=== PATIENT | female | born 1995 | race African-American/Black ===

== ENCOUNTER 2018-05-30 11:33 | Inpatient (IN) ==
[2018-05-30] MEDS ORDERED: OXYTOCIN 30 UNITS/500 ML BAG IV PRN (12:28)
[2018-05-30] MEDS ORDERED: LACTATED RINGER'S 1,000 ML IV PRN (12:28)
[2018-05-30] MEDS ORDERED: miSOPROStol 50 MCG TAB PO ONE (12:45)
[2018-05-30 12:50] LABS: Hematocrit (blood only) 37.8 % (37-47); Hemoglobin 12.6 g/dL (12.0-16.0); Mean Corpuscular Volume 93.8 fL (80-100); Platelet Count 176 K/uL (130-400); RDW Coefficient of Variation 14.7 % (11.5-14.5); RDW Standard Deviation 49.8 fL (36.4-46.3); Red Blood Count 4.03 M/uL (4.2-5.4); White Blood Count 9.84 K/uL (4.8-10.8)
[2018-05-30 13:18] LABS: Mean Corpuscular Hgb Conc 33.3 g/dL (32-36)
--- NOTE | 2018-05-30 13:18 | Progress Note ---
Date of Service May 30, 2018 Met pt and reviewed PNC H&P done Induction for Oligo. AFI3.5 (today) FHr CAT1 ctx minimal VE cl/thick/post Physical Exam Vital Signs (Past 24 Hours): Last Vital Signs Temp 37.2 C 05/30/18 12:25 Resp 18 05/30/18 12:25
--- NOTE | 2018-05-30 13:40 | History and Physical Report ---
DATE OF ADMISSION: 05/30/2018 HISTORY OF PRESENT ILLNESS: The patient is a 23-year-old G1, P0, due date is 05/29/2018 making her 40 weeks and 1 day. The patient was seen in the office 24 hours ago with amniotic fluid index of 3.5 today. She is therefore here for induction of labor. COURSE: Has been unremarkable. LABS: Blood type O positive, antibody negative, rubella immune, GBS positive. PAST MEDICAL HISTORY: None. PAST SURGICAL HISTORY: Dental procedure. SOCIAL HISTORY: The patient denies tobacco, drug or alcohol use. FAMILY HISTORY: Noncontributory. PHYSICAL EXAMINATION: GENERAL: Well-developed, well-nourished black female in no acute distress. HEART: S1, S2, regular rhythm and rate. LUNGS: Clear to auscultation bilaterally. ABDOMEN: Gravid. The patient had a bedside ultrasound today that shows cephalic presentation with ORIN of 3.5. PELVIC: Cervix is closed, thick, medium and posterior. No lesions on the vulva or perineum. EXTREMITIES: No cyanosis, clubbing or edema. ASSESSMENT AND PLAN: A 23-year-old G1, P0 at 40 weeks and 1, oligohydramnios, ORIN is 3.5. The patient is here for labor induction. Positive GBS. Will start the patient on antibiotics prophylactically.
[2018-05-30] MEDS ORDERED: miSOPROStol 50 MCG TAB PO SCH (17:00)
[2018-05-30] MEDS: LACTATED RINGER'S 1,000 ML IV SCH (19:19)
[2018-05-30] MEDS ORDERED: DINOPROSTONE 10 MG INSERT PV ONE (21:30)
--- NOTE | 2018-05-30 22:33 | Progress Note ---
Date of Service May 30, 2018 Doing well Induction for oligo Received 2 doses of Cytotec FHR; CAT1 Ctx 2-3mins VE; Ft/post Cervidil #1 placed Physical Exam Vital Signs (Past 24 Hours): Last Vital Signs Temp 37.0 C 05/30/18 20:00 Pulse 112 H 05/30/18 19:23 Resp 18 05/30/18 15:05 BP 109/63 05/30/18 19:23
--- NOTE | 2018-05-31 00:49 | Progress Note ---
Date of Service May 31, 2018 Chart reviewed with Nurse late and variable decels seen Moderate variability , No recurrent late decels. or recurrent variables IVF hydration Will continue to monitor strip Physical Exam Vital Signs (Past 24 Hours): Last Vital Signs Temp 37.0 C 05/30/18 20:00 Pulse 91 H 05/30/18 23:16 Resp 18 05/30/18 15:05 BP 124/70 05/30/18 23:16
[2018-05-31] MEDS: LACTATED RINGER'S 1,000 ML IV SCH ×3 (01:14→16:31)
--- NOTE | 2018-05-31 01:56 | Progress Note ---
Date of Service May 31, 2018 FHR CAT1 Ctx; tachysystole Cervidil removed IVF bolus Will continue to monitor ctx frequency Physical Exam Vital Signs (Past 24 Hours): Last Vital Signs Temp 37.0 C 05/30/18 20:00 Pulse 91 H 05/30/18 23:16 Resp 18 05/30/18 15:05 BP 124/70 05/30/18 23:16
[2018-05-31] MEDS ORDERED: PENICILLIN G POTASSIUM 6 MU in DEXTROSE 5% 250 ML IV ONE (08:00)
[2018-05-31] MEDS: PENICILLIN G POTASSIUM 3 MU in DEXTROSE 5% 100 ML IV PRN ×2 (18:03→22:08)
--- NOTE | 2018-05-31 22:46 | Obstetrical Progress Note ---
Date of Service May 31, 2018 Physical Exam Vital Signs (Past 24 Hours): Last Vital Signs Temp 36.7 C 05/31/18 22:08 Pulse 93 H 05/31/18 22:34 Resp 18 05/31/18 22:08 BP 115/62 05/31/18 22:34 Genitourinary: Manual OB Exam: + cervical dilation 2 cm, + cervical effacement 50% and + station high OB Exam Monitor Tracing: + external FHT monitor used, + category I and + normal FHT variability
[2018-06-01] MEDS: PENICILLIN G POTASSIUM 3 MU in DEXTROSE 5% 100 ML IV PRN ×5 (03:22→20:10)
[2018-06-01] MEDS ORDERED: OXYTOCIN 30 UNITS/500 ML BAG IV PRN (10:23)
[2018-06-01] MEDS ORDERED: LACTATED RINGER'S 1,000 ML IV PRN ×2 (10:23→17:12)
--- NOTE | 2018-06-01 10:25 | Obstetrical Progress Note ---
Date of Service June 01, 2018 Physical Exam Vital Signs (Past 24 Hours): Last Vital Signs Temp 36.4 C L 06/01/18 10:14 Pulse 101 H 06/01/18 10:16 Resp 18 06/01/18 10:14 BP 106/58 L 06/01/18 10:16 Genitourinary: OB Exam Abdomen: + vertex and + irregular contractions Manual OB Exam: + cervical dilation 3 cm, + cervical effacement 70% and + station high OB Exam Monitor Tracing: + external FHT monitor used and + category I will start oxytocin to augment contractions
[2018-06-01] MEDS: LACTATED RINGER'S 1,000 ML IV SCH ×2 (15:07→15:08)
[2018-06-01] MEDS ORDERED: ePHEDrine sulfate 50 MG/ML AMP ONE (16:15)
[2018-06-01] MEDS ORDERED: BUPIVACAINE 0.25% 30 ML VIAL ONE (16:15)
[2018-06-01] MEDS ORDERED: fentaNYL 2MCG/ML ROPIV 1.25MG/ML 100 ML BAG EPI ONE (16:16)
[2018-06-01] MEDS ORDERED: fentaNYL citrate 100 MCG/2 ML VIAL ONE (16:16)
--- NOTE | 2018-06-01 16:25 | Obstetrical Progress Note ---
Date of Service June 01, 2018 Subjective patient requesting epidural Physical Exam Vital Signs (Past 24 Hours): Last Vital Signs Temp 36.7 C 06/01/18 13:22 Pulse 94 H 06/01/18 14:56 Resp 20 06/01/18 15:25 BP 113/72 06/01/18 14:56 Genitourinary: Manual OB Exam: + cervical dilation 4 cm, + cervical effacement 90% and + station high OB Exam Monitor Tracing: + external FHT monitor used, + external uterine monitor used, + category I and + normal FHT variability awaiting epidural
--- NOTE | 2018-06-01 16:37 | Anesthesiology Consultation ---
Date of Service June 01, 2018 Assessment & Plan Chart Review Chart Review: Acceptable Risk for Labor Epidural Consults Requested none ASA ASA2 Proposed Anesthesia Anesthesia Type: Labor Epidural Risk / Benefits Reviewed With: PT / POA / Parent / Guardian, Accepts Plan and Informed Consent Obtained NPO Date Last Intake of Fluids: 06/01/18 Time Last Intake of Fluids: 08:00 Date Last Intake of Solids: 06/01/18 Time Last Intake of Solids: 08:00 History Height/Weight Height: 5 ft 3 in Weight: 67.585 kg Allergies Allergy/AdvReac Type Severity Reaction Status Date / Time No Known Allergies Allergy Unverified 10/10/15 11:15 Medications Home Medications Medication Instructions Recorded Confirmed Last Taken vit-iron fum-folic ac 1 tab PO DAILY 05/29/18 05/30/18 05/29/18 18:00 [ Vitamin] valacyclovir [Valtrex] 500 mg PO DAILY 05/29/18 05/30/18 05/29/18 18:00 Active Medications Generic Name Dose Route Start Last Admin Trade Name Jennifer PRN Reason Stop Dose Admin Lactated Ringer's 1,000 mls @ 999 mls/hr 05/30/18 12:28 06/01/18 16:10 Lr IV 06/29/18 12:27 999 mls/hr .Q1H1M PRN Administration (Pre-Anesthesia) Penicillin G Potassium 3 mu/ 106 mls @ 100 mls/hr 05/31/18 13:00 06/01/18 16:04 Dextrose IV 06/10/18 12:59 106 mls/hr Q4H PRN Administration Give until delivery Oxytocin 30 units in 500 mls @ 9 mls/hr 06/01/18 10:23 06/01/18 16:05 Pitocin IV 06/03/18 10:22 0.54 units/hr .Q24H PRN 9 mls/hr Labor Induction/Augmentation Titration Protocol 0.54 UNITS/HR Past Medical History Medical History History of suicidal ideation History of tooth extraction Past Anesthesia History No Hx of Anesthesia Complications and No Family Hx of Anesthesia Complications History of PONV No Motion Sickness Screening History of Motion Sickness: No Social History Smoking Status: Never smoker Do You Dip or Chew Tobacco: No Hx Alcohol Use: No Hx Substance Use: No substance use type: does not use Exercise / Class Metabolic Activity II 4-5 Yardwork/Stairs/Walk up deepwater Physical Exam Vital Signs Last Vital Signs Temp 36.7 C 06/01/18 13:22 Pulse 106 H 06/01/18 16:40 Resp 20 06/01/18 15:25 BP 118/78 06/01/18 16:27 Pulse Ox 100 06/01/18 16:40 ENMT Mouth: + small oral opening; no dentition abnormality Thyromental Distance: < 3.5 Finger Breadths Mallampati Class: II Neck normal visual inspection and trachea midline; neck extension not limited Respiratory normal respiratory effort Auscultation: lungs clear to auscultation bilaterally Cardiovascular Rate/Rhythm: regular rate and regular rhythm Heart Sounds: no murmur Musculoskeletal Spine: lumbar spine normal to inspection; normal cervical ROM Neurologic moves all extremities Motor/Sensory: no sensory deficit Psychiatric Orientation: alert and oriented x 3 Testing Laboratory Results 05/30/18 12:36
[2018-06-01] MEDS ORDERED: ONDANSETRON INJ 2 MG/ML 2 ML VIAL IV PRN (17:12)
[2018-06-01] MEDS ORDERED: NALBUPHINE HCL INJ 10 MG/ML AMP IV PRN (17:12)
[2018-06-01] MEDS ORDERED: NALOXONE HCL 1 MG in SODIUM CHLORIDE 0.9% 1000ML 1,000 ML IV PRN (17:12)
[2018-06-01] MEDS ORDERED: DiphenhydrAMINE HCL 50 MG/ML VIAL IV PRN (17:12)
[2018-06-01] MEDS ORDERED: PROMETHAZINE HCL 25 MG in SODIUM CHLORIDE 0.9% 50 ML IV PRN (17:12)
[2018-06-01] MEDS ORDERED: ePHEDrine sulfate 50 MG/ML AMP IV PRN (17:12)
[2018-06-01] MEDS ORDERED: NALOXONE HCL 0.4 MG/1 ML VIAL/CARP IV PRN (17:12)
--- NOTE | 2018-06-01 19:50 | Obstetrical Progress Note ---
Date of Service June 01, 2018 Physical Exam Vital Signs (Past 24 Hours): Last Vital Signs Temp 37.1 C 06/01/18 19:15 Pulse 102 H 06/01/18 19:45 Resp 18 06/01/18 19:15 BP 145/74 H 06/01/18 19:38 Pulse Ox 100 06/01/18 19:45 Genitourinary: Manual OB Exam: + cervical dilation 4 cm and 5 cm, + cervical effacement 80%, + station high and + amniotic fluid OB Exam Monitor Tracing: + external FHT monitor used, + external uterine monitor used, + category I and + normal FHT variability Attempted AROM but very minimal fluid noted
[2018-06-02] MEDS: PENICILLIN G POTASSIUM 3 MU in DEXTROSE 5% 100 ML IV PRN ×3 (00:02→08:04)
[2018-06-02] MEDS: fentaNYL 2MCG/ML ROPIV 1.25MG/ML 100 ML BAG EPI PRN ×2 (02:16→09:11)
--- NOTE | 2018-06-02 07:34 | Progress Note ---
Date of Service June 02, 2018 Pt signed out to me by Dr Dykes Met pt an mother Reviewed care with Nurse Pt on IV anbtibx for GBS No fever ot tachycardia reported Both Nurse and Dr Dykes report strip has been unremarkable FHR ; CAt1 Ctx 1-4 VE; 10/100/0 station Pit 19MU Pt not feeling any pelvic pressure Will start pushing as soon Anticipate VD Physical Exam Vital Signs (Past 24 Hours): Last Vital Signs Temp 36.8 C 06/02/18 06:24 Pulse 96 H 06/02/18 07:28 Resp 16 06/02/18 06:24 BP 122/72 06/02/18 07:22 Pulse Ox 93 06/02/18 07:28
[2018-06-02] MEDS ORDERED: HYDROCORTISONE ACETATE 25 MG SUPP PR PRN (12:14)
[2018-06-02] MEDS ORDERED: SUPERCREAM 0.870% 15 GM JAR EXT PRN (12:14)
[2018-06-02] MEDS ORDERED: OXYTOCIN 30 UNITS/500 ML BAG IV PRN (12:14)
[2018-06-02] MEDS ORDERED: DIPHTHERIA/TETANUS/PERTUSSIS 0.5 ML SYR/VIAL IM ONE (12:14)
[2018-06-02] MEDS ORDERED: BENZOCAINE 20% AER SPR 82.5 GM CAN EXT PRN (12:14)
[2018-06-02] MEDS ORDERED: ACETAMINOPHEN 325 MG TAB PO PRN (12:14)
[2018-06-02] MEDS: METHYLERGONOVINE MALEATE 0.2 MG/ML AMP ONE ×2 (12:14→12:51)
[2018-06-02] MEDS ORDERED: BISACODYL 10 MG SUPP PR PRN (12:14)
[2018-06-02] MEDS: miSOPROStol 200 MCG TAB ONE ×2 (12:29→12:51)
[2018-06-02] MEDS ORDERED: miSOPROStol 200 MCG TAB PR ONE (12:37)
[2018-06-02] MEDS ORDERED: METHYLERGONOVINE MALEATE 0.2 MG/ML AMP IM STA (12:37)
[2018-06-02 12:54] LABS: Base Excess Cord Arterial Bld -11.1 mEq/L (-9-1.8); CO2 Cord Arterial Blood 74 mmHg (39.1-73.5); HCO3 Cord Arterial Blood 21 mmol/L (19.7-28.5); pH Cord Arterial Blood 7.06 (7.1-7.38)
[2018-06-02 13:02] LABS: Base Excess Cord Venous Blood -8.7 mEq/L (-7.7-1.9); Cord Venous Blood HCO3 18 mmol/L (18.4-26.8); Cord Venous Blood PCO2 41 mmHg (30.4-57.2); Cord Venous Blood PO2 34 mmHg (14.1-43.3); Cord Venous Blood pH 7.26 (7.20-7.44)
--- NOTE | 2018-06-02 14:19 | Anesthesia Procedure Note ---
Date of Service June 02, 2018 Anesthesia Post Epidural Note Vital Signs Vital Signs: Temp Pulse Resp BP Pulse Ox 36.9 C 118 H 20 139/66 54 L 06/02/18 13:02 06/02/18 14:17 06/02/18 14:02 06/02/18 14:17 06/02/18 12:52 Pain Intensity Back: Pain Intensity: 0 Notes Mental Status: alert / awake / arousable and participated in evaluation Nausea / Vomiting: adequately controlled Pain: adequately controlled Airway Patency, RR, SpO2: stable & adequate BP & HR: stable & adequate Hydration State: stable & adequate Neuraxial Anesthesia: was administered and sensory block is resolving Anesthetic Complications: no major complications apparent and Pt Satisfied with anesthetic care Epidural: Removed without complications and With tip intact
[2018-06-02] MEDS: IBUPROFEN 600 MG TAB PO PRN (15:31)
--- NOTE | 2018-06-02 15:37 | Delivery Summary ---
DATE OF OPERATION: 06/02/2018 DELIVERY NOTE The patient delivered a live male in occiput anterior presentation. There was a nuchal cord which was easily reduced. was delivered, placed on mother's abdomen. Cord was clamped and cut. Cord gas was obtained as well as cord blood. Placenta was spontaneously delivered. Inspection of the placenta shows a grossly normal 3-vessel cord. The patient's weight and Apgars is in the pediatric record. Inspection of the perineum showed a second-degree midline laceration as well as 2 labial tears, which I repaired with 2-0 Vicryl in layers. Rectal exam post repair showed good sphincter tone. Estimated blood loss was 600 mL. Baby and mother are doing well in recovery. All instruments were removed from the vagina and accounted for including retractors, sponges and needles. I attest to the content of the Intraoperative Record and any orders documented therein. Any exception s are noted below.
[2018-06-02] MEDS ORDERED: OXYTOCIN 20 UNITS in LACTATED RINGER'S 1,000 ML IV SCH (20:45)
[2018-06-02] MEDS: DOCUSATE SODIUM 100 MG CAP PO SCH (20:53)
[2018-06-03 07:14] LABS: Hematocrit (blood only) 31.8 % (37-47); Hemoglobin 10.5 g/dL (12.0-16.0); Mean Platelet Volume 10.7 fL (7.4-10.4); Platelet Count 181 K/uL (130-400); RDW Coefficient of Variation 14.5 % (11.5-14.5); RDW Standard Deviation 49.6 fL (36.4-46.3); Red Blood Count 3.42 M/uL (4.2-5.4); White Blood Count 14.66 K/uL (4.8-10.8)
[2018-06-03] MEDS ORDERED: PRENATAL VITAMIN 1 TAB PO SCH (09:00)
[2018-06-03] MEDS: PRENATAL VITAMIN 1 TAB PO SCH (09:14)
[2018-06-03] MEDS: FERROUS SULFATE 325 MG TAB PO SCH (09:15)
[2018-06-03] MEDS: DOCUSATE SODIUM 100 MG CAP PO SCH ×2 (09:15→21:18)
[2018-06-03] MEDS: IBUPROFEN 600 MG TAB PO PRN ×3 (09:16→21:22)
--- NOTE | 2018-06-03 10:21 | Obstetrical Progress Note ---
Date of Service June 03, 2018 Assessment & Plan (1) normal course: PPD #1 Pt doing well No complaints Anticipate disch tomorrow Subjective Ambulation: ambulating normally Voiding: no voiding problems Passing Gas:: Yes Diet Tolerance:: regular diet Lochia:: Small Feeding Type:: breast feeding Review of Systems All systems reviewed & are unremarkable except as noted in HPI & below Physical Exam Vital Signs (Past 24 Hours) Last Vital Signs Temp 36.3 C L 06/03/18 08:05 Pulse 100 H 06/03/18 08:05 Resp 18 06/03/18 08:05 BP 106/68 06/03/18 08:05 Pulse Ox 100 06/03/18 08:05 Constitutional WD/WN, vitals as above well developed and well nourished Eyes PERRL, conjunctivae normal, anicteric sclerae Neck trachea midline, no thyromegaly Respiratory normal respiratory effort, lungs clear to auscultation Auscultation: no crackles, no rales and no wheezes Cardiovascular RRR, no murmur, no edema Gastrointestinal (Abdomen) normal bowel sounds, soft, nontender, no hepatosplenomegaly Uterus is below umbilicus Musculoskeletal no cyanosis or clubbing, extremities motor strength 5/5 Skin no rashes, warm and dry Neurologic patellar DTR's 2+ bilat, sensation intact Psychiatric A+Ox3, euthymic affect Genitourinary normal external appearance
[2018-06-03] MEDS ORDERED: BISACODYL 5 MG TABEC PO SCH (20:00)
[2018-06-04] MEDS: IBUPROFEN 600 MG TAB PO PRN (06:12)
[2018-06-04 07:28] LABS: Hematocrit (blood only) 29.8 % (37-47)
[2018-06-04] MEDS: PRENATAL VITAMIN 1 TAB PO SCH (08:06)
[2018-06-04] MEDS: DOCUSATE SODIUM 100 MG CAP PO SCH (08:06)
[2018-06-04] MEDS: FERROUS SULFATE 325 MG TAB PO SCH (08:07)
--- NOTE | 2018-06-04 10:20 | Obstetrical Progress Note ---
Date of Service June 04, 2018 Assessment & Plan (1) normal course: Pt doing well s/p VD day #2 pt doing well d/c home with instructions Subjective Ambulation: ambulating normally Voiding: no voiding problems Passing Gas:: Yes Diet Tolerance:: regular diet Lochia:: Small Feeding Type:: breast feeding Review of Systems All systems reviewed & are unremarkable except as noted in HPI & below Physical Exam Vital Signs (Past 24 Hours) Last Vital Signs Temp 36.6 C 06/04/18 08:00 Pulse 89 06/04/18 08:00 Resp 18 06/04/18 08:00 BP 103/65 06/04/18 08:00 Pulse Ox 95 06/04/18 08:00 Constitutional WD/WN, vitals as above well developed and well nourished Eyes PERRL, conjunctivae normal, anicteric sclerae Neck trachea midline, no thyromegaly Respiratory normal respiratory effort, lungs clear to auscultation Auscultation: no crackles, no rales and no wheezes Cardiovascular RRR, no murmur, no edema Gastrointestinal (Abdomen) normal bowel sounds, soft, nontender, no hepatosplenomegaly Uterus is below umbilicus Musculoskeletal no cyanosis or clubbing, extremities motor strength 5/5 Skin no rashes, warm and dry Neurologic patellar DTR's 2+ bilat, sensation intact Psychiatric A+Ox3, euthymic affect Genitourinary normal external appearance
== END 2018-06-04 16:00 | disposition home or self-care (01) | DRG 807 ==
LOC: OPB 11:33 → 4S2 11:34 → 4S1 05-31 02:03 → 4S2 06-02 15:31

== ENCOUNTER 2019-09-02 17:38 | Inpatient (IN) ==
--- NOTE | 2019-09-02 18:38 | Emergency Department Note ---
Impression & Plan Acute psychosis, Depressed mood ED Provider Note NAME: RIMMA POTTER AGE: 24 SEX: F : 1995 ARRIVES VIA: Walk-In INFORMANT: Patient, ED PROVIDER(S): Vishnu Dickerson MD Chief Complaint: Acute psychosis HPI: History is limited secondary to the patient's acute psychosis and limited ability to relate her concerns. After speaking with the patient who was occasionally emotionally upset and sad I did speak with the patient's family. The patient's had decreased sleep is not taking care of herself. The patient recently took herself off of her olanzapine back in March. The patient has not had any additional follow-up since then. The patient stopped taking medication as she does have a [id number] and it was causing her demeanor to change to where she felt as though she was unable to take care of her child. Patient has tried to cut herself 2 to 3 years prior. Patient is not making any acute sense and the family was concerned. Patient did have a 302 petition completed by the family members. ROS: See HPI for pertinent positives and negatives. A total of 10 systems were reviewed and otherwise negative. Past medical history: See below Surgical history: See below Social history: See below Physical Exam: GENERAL: NAD, non-toxic. EYE EXAM: Normal conjunctiva. PERRL, no anisocoria and EOM's grossly intact w/o pain. [OROPHARYNX: Moist mucus membranes. Grossly normal dentition. ] NECK: Supple, no nuchal rigidity, no adenopathy, non-tender. No signs of meningismus. LUNGS: Clear to auscultation. Normal chest wall mechanics. HEART: NSR, no MRG. ABDOMEN: Abdomen soft, non-tender, normo-active bowel sounds, no masses, no rebound or guarding. BACK: No CVA TTP. SKIN: No rashes and no bruising. UPPER EXTREMITIES: Upper extremities are grossly normal. LOWER EXTREMITIES: Grossly normal, no edema. NEURO EXAM: Awake and alert moves all extremities. Psych: Tangential speech, depressed mood, does not respond specifically to questions of SI, HI, or AVH. Differential diagnoses: Mood disorder, infection, hypoglycemia, electrolyte abnormalities, cardiac sources, intracerebral event, toxicologic, trauma, neurologic, as well as other pathologies. Course: Patient was seen and evaluated the bedside. Full history physical exam was performed. EKG: None Imaging Studies: None MDM: She was seen and evaluated bedside. The patient subsequently medically cleared. I did speak with the patient's family. Patient is an involuntary 302. I did sign out the patient pending evaluation disposition and placement to Dr. Zelaya the nighttime physician. Past Med/Surg History Medical History Bipolar 1 disorder History of suicidal ideation Surgical History History of tooth extraction Family History Other Heart disease Social History Preferred Language: Wolof Communication Ability: Effective [employer] Service Management Teacher Required: No Beliefs That Will Affect Care: None marital status: Single Current Living Situation: Parent Current Living Situation Comment: Lives 50/50 with friend Tr and mother Williams Feels Safe at Home: Declines to Answer Smoking Status: Never smoker Hx Alcohol Use: No Hx Substance Use: No Allergies Allergies Allergy/AdvReac Type Severity Reaction Status Date / Time No Known Allergies Allergy Verified 09/02/19 18:27 Home Meds Home Medications Medication Instructions Recorded Confirmed olanzapine 5 mg PO HS 09/03/19 09/03/19 Results & Data (ED) Vital Signs Vital Signs - 24 hr 09/02/19 17:40 Temperature 37.3 C Temperature Source Oral Pulse Rate 128 H Respiratory Rate 20 Blood Pressure 145/84 H Blood Pressure Mean 104 Pulse Oximetry 98 Oxygen Delivery Method Room Air Sepsis Recent Fever Within 48 Hours No Sepsis New/Unexplained Change in Mental Status No Sepsis Action Taken by Nursing No Action Required Home Medications Current Medication List: was personally reviewed by me Laboratory Data Attestation: I reviewed the patient's lab results. Result diagrams: 09/02/19 20:35 09/02/19 20:35 Lab Results 09/02/19 09/02/19 09/02/19 Range/Units 20:35 20:35 20:35 WBC 6.88 (4.8-10.8) K/uL RBC 4.09 L (4.2-5.4) M/uL Hgb 12.5 (12.0-16.0) g/dL Hct 38.0 (37-47) % MCV 92.9 (80-100) fL MCH 30.6 (25-34) pg MCHC 32.9 (32-36) g/dL RDW Std Deviation 44.9 (36.4-46.3) fL RDW Coeff of Ana 13.3 (11.5-14.5) % Plt Count 368 (130-400) K/uL MPV 9.1 (7.4-10.4) fL Immature Gran % (Auto) 0.1 % Neut % (Auto) 62.9 % Lymph % (Auto) 32.6 % Bonner % (Auto) 4.2 % Eos % (Auto) 0.1 % Baso % (Auto) 0.1 % Immature Gran # (Auto) 0.01 (0.00-0.02) K/uL Neut # (Auto) 4.32 (1.4-6.5) K/uL Lymph # (Auto) 2.24 (1.2-3.4) K/uL Bonner # (Auto) 0.29 (0.11-0.59) K/uL Eos # (Auto) 0.01 (0-0.5) K/uL Baso # (Auto) 0.01 (0-0.2) K/uL Sodium 136 (136-145) mmol/L Potassium 3.9 (3.5-5.1) mmol/L Chloride 104 (98-107) mmol/L Carbon Dioxide 26 (21-32) mmol/L Anion Gap 5.0 (3-11) BUN 10 (7-18) mg/dl Creatinine 0.86 (0.6-1.2) mg/dl Est Cr Clr Drug Dosing 82.0 ml/min Est GFR ( Amer) 111.1 Est GFR (Non-Af Amer) 95.9 BUN/Creatinine Ratio 11.6 (10-20) Glucose 99 (70-99) mg/dl Calcium 9.3 (8.5-10.1) mg/dl Total Bilirubin 0.4 (0.2-1) mg/dl AST 11 L (15-37) U/L ALT 18 (12-78) U/L Alkaline Phosphatase 58 (45-117) U/L Total Protein 8.1 (6.4-8.2) gm/dl Albumin 4.0 (3.4-5.0) gm/dl Globulin 4.1 H (2.5-4.0) gm/dl Albumin/Globulin Ratio 1.0 (0.9-2) TSH 0.796 (0.300-4.500) uIu/ml HCG, Qual (Negative) Urine Color Urine Appearance (Clear) Urine pH (4.5-7.5) Ur Specific [place] (1.000-1.030) Urine Protein (Negative) Urine Glucose (UA) (Negative) Urine Ketones (Negative) Urine Blood (Negative) Urine Nitrite (Negative) Urine Bilirubin (Negative) Urine Urobilinogen (Negative) Ur Leukocyte Esterase (Negative) Salicylates < 1.7 L (2.8-20) mg/dl Urine Opiates Screen (Neg) Ur Methadone, Qual (Neg) Acetaminophen < 2 L (10-30) ug/ml Urine Barbiturates (Neg) Ur Phencyclidine (PCP) (Neg) U Amphetamin/Meth Scrn (Neg) MDMA (Ecstasy) Screen (Neg) U Benzodiazepines Scrn (Neg) Ur Cocaine Metabolite (Neg) U Marijuana (THC) Screen (Neg) Ethyl Alcohol mg/dL (0-3) mg/dl 09/02/19 09/02/19 09/03/19 Range/Units 20:35 20:38 03:51 WBC (4.8-10.8) K/uL RBC (4.2-5.4) M/uL Hgb (12.0-16.0) g/dL Hct (37-47) % MCV (80-100) fL MCH (25-34) pg MCHC (32-36) g/dL RDW Std Deviation (36.4-46.3) fL RDW Coeff of Ana (11.5-14.5) % Plt Count (130-400) K/uL MPV (7.4-10.4) fL Immature Gran % (Auto) % Neut % (Auto) % Lymph % (Auto) % Bonner % (Auto) % Eos % (Auto) % Baso % (Auto) % Immature Gran # (Auto) (0.00-0.02) K/uL Neut # (Auto) (1.4-6.5) K/uL Lymph # (Auto) (1.2-3.4) K/uL Bonner # (Auto) (0.11-0.59) K/uL Eos # (Auto) (0-0.5) K/uL Baso # (Auto) (0-0.2) K/uL Sodium (136-145) mmol/L Potassium (3.5-5.1) mmol/L Chloride (98-107) mmol/L Carbon Dioxide (21-32) mmol/L Anion Gap (3-11) BUN (7-18) mg/dl Creatinine (0.6-1.2) mg/dl Est Cr Clr Drug Dosing ml/min Est GFR ( Amer) Est GFR (Non-Af Amer) BUN/Creatinine Ratio (10-20) Glucose (70-99) mg/dl Calcium (8.5-10.1) mg/dl Total Bilirubin (0.2-1) mg/dl AST (15-37) U/L ALT (12-78) U/L Alkaline Phosphatase (45-117) U/L Total Protein (6.4-8.2) gm/dl Albumin (3.4-5.0) gm/dl Globulin (2.5-4.0) gm/dl Albumin/Globulin Ratio (0.9-2) TSH (0.300-4.500) uIu/ml HCG, Qual Negative (Negative) Urine Color Yellow Urine Appearance Clear (Clear) Urine pH 5.5 (4.5-7.5) Ur Specific [place] 1.024 (1.000-1.030) Urine Protein Negative (Negative) Urine Glucose (UA) Negative (Negative) Urine Ketones Negative (Negative) Urine Blood Negative (Negative) Urine Nitrite Negative (Negative) Urine Bilirubin Negative (Negative) Urine Urobilinogen Negative (Negative) Ur Leukocyte Esterase Negative (Negative) Salicylates (2.8-20) mg/dl Urine Opiates Screen (Neg) Ur Methadone, Qual (Neg) Acetaminophen (10-30) ug/ml Urine Barbiturates (Neg) Ur Phencyclidine (PCP) (Neg) U Amphetamin/Meth Scrn (Neg) MDMA (Ecstasy) Screen (Neg) U Benzodiazepines Scrn (Neg) Ur Cocaine Metabolite (Neg) U Marijuana (THC) Screen (Neg) Ethyl Alcohol mg/dL < 3.0 (0-3) mg/dl 06/11/20 Range/Units 03:57 WBC (4.8-10.8) K/uL RBC (4.2-5.4) M/uL Hgb (12.0-16.0) g/dL Hct (37-47) % MCV (80-100) fL MCH (25-34) pg MCHC (32-36) g/dL RDW Std Deviation (36.4-46.3) fL RDW Coeff of Ana (11.5-14.5) % Plt Count (130-400) K/uL MPV (7.4-10.4) fL Immature Gran % (Auto) % Neut % (Auto) % Lymph % (Auto) % Bonner % (Auto) % Eos % (Auto) % Baso % (Auto) % Immature Gran # (Auto) (0.00-0.02) K/uL Neut # (Auto) (1.4-6.5) K/uL Lymph # (Auto) (1.2-3.4) K/uL Bonner # (Auto) (0.11-0.59) K/uL Eos # (Auto) (0-0.5) K/uL Baso # (Auto) (0-0.2) K/uL Sodium (136-145) mmol/L Potassium (3.5-5.1) mmol/L Chloride (98-107) mmol/L Carbon Dioxide (21-32) mmol/L Anion Gap (3-11) BUN (7-18) mg/dl Creatinine (0.6-1.2) mg/dl Est Cr Clr Drug Dosing ml/min Est GFR ( Amer) Est GFR (Non-Af Amer) BUN/Creatinine Ratio (10-20) Glucose (70-99) mg/dl Calcium (8.5-10.1) mg/dl Total Bilirubin (0.2-1) mg/dl AST (15-37) U/L ALT (12-78) U/L Alkaline Phosphatase (45-117) U/L Total Protein (6.4-8.2) gm/dl Albumin (3.4-5.0) gm/dl Globulin (2.5-4.0) gm/dl Albumin/Globulin Ratio (0.9-2) TSH (0.300-4.500) uIu/ml HCG, Qual (Negative) Urine Color Urine Appearance (Clear) Urine pH (4.5-7.5) Ur Specific [place] (1.000-1.030) Urine Protein (Negative) Urine Glucose (UA) (Negative) Urine Ketones (Negative) Urine Blood (Negative) Urine Nitrite (Negative) Urine Bilirubin (Negative) Urine Urobilinogen (Negative) Ur Leukocyte Esterase (Negative) Salicylates (2.8-20) mg/dl Urine Opiates Screen Neg (Neg) Ur Methadone, Qual Neg (Neg) Acetaminophen (10-30) ug/ml Urine Barbiturates Neg (Neg) Ur Phencyclidine (PCP) Neg (Neg) U Amphetamin/Meth Scrn Neg (Neg) MDMA (Ecstasy) Screen Neg (Neg) U Benzodiazepines Scrn Neg (Neg) Ur Cocaine Metabolite Neg (Neg) U Marijuana (THC) Screen Pos H (Neg) Ethyl Alcohol mg/dL (0-3) mg/dl Administered Medications Olanzapine (Zyprexa) 5 mg PO HS EMBER Stop: 10/03/19 21:59 Last Admin: 09/03/19 21:34 Dose: 5 mg Documented by: [id number] Discontinued Medications Haloperidol Lactate (Haldol) 5 mg IM NOW STA Stop: 09/02/19 19:42 Last Admin: 09/02/19 20:11 Dose: 5 mg Documented by: [id number] Lorazepam (Ativan) 2 mg IM NOW STA Stop: 09/02/19 19:42 Last Admin: 09/02/19 20:11 Dose: 2 mg Documented by: [id number] Discharge Plan Visit Data *Final* Discharge Date/Time: 09/03/19 10:00 Chief Complaint: Mental Health Evaluation Stated Complaint: MENTAL HEALTH EVAL ED Provider: Isidro Casanova Discharge Problem: Acute psychosis, Depressed mood Patient Disposition: Admitted As Inpatient Discharge Instructions Interventions: ED Discharge Assessment Last Done: 09/03/19 10:00
[2019-09-02] MEDS ORDERED: LORazepam 2 MG/ML VIAL (IM USE) IM STA (19:41)
[2019-09-02] MEDS ORDERED: HALOPERIDOL LACTATE 5 MG/ML 1 ML VIAL IM STA (19:41)
[2019-09-02 21:15] LABS: Basophils # (auto) 0.01 K/uL (0-0.2); Basophils % (auto) 0.1 %; Eosinophils # (auto) 0.01 K/uL (0-0.5); Eosinophils % (auto) 0.1 %; Hemoglobin 12.5 g/dL (12.0-16.0); Immature Granulocytes # (auto) 0.01 K/uL (0.00-0.02); Immature Granulocytes % (auto) 0.1 %; Lymphocytes # (auto) 2.24 K/uL (1.2-3.4); Lymphocytes % (auto) 32.6 %; Mean Corpuscular Hemoglobin 30.6 pg (25-34); Mean Corpuscular Hgb Conc 32.9 g/dL (32-36); Mean Corpuscular Volume 92.9 fL (80-100); Mean Platelet Volume 9.1 fL (7.4-10.4); Monocytes # (auto) 0.29 K/uL (0.11-0.59); Monocytes % (auto) 4.2 %; Neutrophils # (auto) 4.32 K/uL (1.4-6.5); Neutrophils % (auto) 62.9 %; Platelet Count 368 K/uL (130-400); RDW Coefficient of Variation 13.3 % (11.5-14.5); RDW Standard Deviation 44.9 fL (36.4-46.3); Red Blood Count 4.09 M/uL (4.2-5.4); White Blood Count 6.88 K/uL (4.8-10.8)
[2019-09-02 21:26] LABS: Pregnancy Test, Serum Negative (Negative)
[2019-09-02 21:33] LABS: BUN Creatinine Ratio 11.6 (10-20); Calcium 9.3 mg/dl (8.5-10.1); Est GFR (African American) 111.1; Est GFR (Non-African American) 95.9; Potassium 3.9 mmol/L (3.5-5.1)
[2019-09-02 21:43] LABS: Acetaminophen < 2 ug/ml (10-30); Bilirubin,Total 0.4 mg/dl (0.2-1); Globulin 4.1 gm/dl (2.5-4.0); Salicylate < 1.7 mg/dl (2.8-20); Thyroid Stimulating Hormone 0.796 uIu/ml (0.300-4.500); Total Protein 8.1 gm/dl (6.4-8.2)
[2019-09-03 04:09] LABS: Appearance Urine Clear (Clear); Bilirubin Urine Negative (Negative); Blood Urine Negative (Negative); Color Urine Yellow; Glucose Urine UA Negative (Negative); Ketones Urine Negative (Negative); Leukocyte Esterase Urine Negative (Negative); Nitrite Urine Negative (Negative); Protein Urine Negative (Negative); Specific Gravity Urine 1.024 (1.000-1.030); Urobilinogen Urine Negative (Negative); pH Urine 5.5 (4.5-7.5)
[2019-09-03 04:56] LABS: Amphetamines+Metham, Urine Neg (Neg); Barbiturates, Urine Neg (Neg); Benzodiazepine, Urine Neg (Neg); Cocaine, Urine Neg (Neg); MDMA (Ecstacy), Urine Neg (Neg); Methadone, Urine Neg (Neg); Opiate, Urine Neg (Neg); Phencyclidine, Urine Neg (Neg)
--- NOTE | 2019-09-03 06:40 | Emergency Department Note ---
ED Visit Note Patient signed out to me awaiting psychiatric case management evaluation after requiring Ativan and Haldol last night. Patient is reportedly on a 302 petition secondary to suicidal thoughts that she made to family members. Medical clearance otherwise completed previously. Patient did have some transient moderate tachycardia here and repeat EKG shows a sinus rhythm 104 bpm. QTC of 449 is noted without PVC or ST segment changes. No evidence of SVT or significant dysrhythmia. Believe she is cleared for further inpatient psychiatric care. Second transplant case manager assisted with evaluation and bed placement. Was accepted to 3 S. for further care on 302 given the petitioning statement. Patient this morning denies acute suicidal thoughts but does report history. .
--- NOTE | 2019-09-03 07:11 | Emergency Department Note ---
ED Visit Note I received this patient in signout at the change of shift from Dr. Dickerson, pending psychiatric evaluation and disposition. The patient was agitated and required sedation with Haldol and Ativan previous to signout. Upon clearing, the patient will require mental health evaluation. She is currently held on a 302. The case has been signed out to Dr. Casanova at the change of shift, please see his notes for final disposition. .
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
[2019-09-03] MEDS ORDERED: ALUMINUM/MAGNESIUM SUSP 30 ML UDC PO PRN (14:04)
[2019-09-03] MEDS ORDERED: ACETAMINOPHEN 325 MG TAB PO PRN (14:04)
[2019-09-03] MEDS ORDERED: MAGNESIUM HYDROXIDE SUSP 30 ML UDC PO PRN (14:04)
[2019-09-03] MEDS ORDERED: BISMUTH SUBSALICYLATE PER ML OMNICELL CHARGE PO PRN (14:04)
[2019-09-03] MEDS ORDERED: SODIUM CHLORIDE 0.65% NA SOLN 45 ML (OCEAN) PRN (14:04)
[2019-09-03] MEDS ORDERED: OLANZapine 5 MG TABLET PO SCH (22:00)
--- NOTE | 2019-09-03 23:16 | Electrocardiogram Report ---
Test Reason : Blood Pressure : / mmHG Vent. Rate : 104 BPM Atrial Rate : 104 BPM P-R Int : 118 ms QRS Dur : 074 ms QT Int : 342 ms P-R-T Axes : 067 080 054 degrees QTc Int : 449 ms Sinus tachycardia Otherwise normal ECG When compared with ECG of 10-OCT-2015 10:47, QT has lengthened Confirmed by Phil Hunt ([id number] on 09/03/2019 11:15:59 PM Referred By: REFERRED SELF Confirmed By:Phil Hunt
[2019-09-04 08:20] LABS: Glucose Fasting 88 mg/dl (70-99)
[2019-09-04 08:26] LABS: Chol HDL Ratio 2; Cholesterol 155 mg/dl (0-200); HDL Cholesterol 72 mg/dl; LDL Cholesterol Calculated 73 mg/dl; Triglycerides 50 mg/dl (0-150); VLDL Cholesterol 10 mg/dl
--- NOTE | 2019-09-04 14:33 | Psychiatric Progress Note ---
Date of Service September 04, 2019 Impression / Recommendations Impression 24-year-old partnered female with a history of bipolar disorder and multiple previous hospitalizations who dropped out of treatment several months ago and has not been on medication, now presenting with psychosis and inability to care for herself. UDS + THC, and family, who completed the 302 petition, notes she has not been able to care for her child due to her psychiatric symptoms. She is a limited historian and we will need to gather additional information. Inpatient treatment is medically necessary due to the severity of her symptoms and risk for harm to both herself and others of discharge, as she has not been able to provide for her own basic needs or those of her [id number] child. On the second day of her stay the patient disclosed that she recognizes that her thinking has been confused and that she is having trouble distinguishing that which she has read about in books with what is actually happening in the real world around her. She endorses paranoid thoughts regarding her family of orig in. She tells us that prior to admission she had had suspicions that her mother, and her younger brother and sister were trying to kill her, although she reports that those thoughts have resolved. The patient's main concern at this point is that she acknowledges that her thinking has not been clear. She feels that she has had more clarity of thought today than previously, but does not attribute that to olanzapine (given last night) or Haldol, given in the emergency department. She asked that we not continue olanzapine because she feels that it causes her to feel sedated and "more confused." Clinical data provided today by the patient is not strongly supportive of the diagnosis of bipolar disorder, although she does acknowledge that her mood cycles and that there are times in her life where she feels "really happy." (1) Bipolar 1 disorder: 09/02 -admitted on a 302 involuntary commitment. -Medically necessary private room due to disorganized and aggressive behavior in the emergency room. -Use of ANGELICA as needed. -Continue home dose of olanzapine 5 mg at bedtime, and explore other medication options. She reports past trials of other atypicals and lithium states all medications made her feel "like a zombie." Obtain records from past treatment. Will order fasting blood work for tomorrow for monitoring on an atypical. -Encourage group attendance and participation. Work on healthy coping skills and discharge safety plan. -Refer for outpatient mental health treatment. Clarify if she has a BCM. -Family meeting with boyfriend and/or mother. 09/03 -The patient reports today that she feels that her thinking has become somewhat more organized. She was able to disclose that her thoughts prior to admission had included a belief that her mother, her younger brother and her younger sister are conspiring to physically harm or kill her. -Patient, as noted above, believes that all second-generation antipsychotic medications taken by the patient to date have caused excess sedation and, she puts it, causing her to feel "like a zombie." We discussed various treatment options, including a trial of aripiprazolea medication that she has not taken in the past, to the best of her recollection. We also discussed perphenazine. Atypical antipsychotic medications, and given the somewhat unusual presentation for either pole of bipolar disorder, I will offer the patient a trial of perphenazine 2 mg a day, and we will discontinue olanzapine at the patient's request. Risk Factors Assessment Male: No : No Do You Have Access To A Gun?: No Health Problems: No Mental Health Diagnoses: Yes Substance Use Disorders: Yes Previous Attempt: Yes Family History of Suicide: No Previous Psychiatric Hospitalization: Yes Hopelessness: No Smoker: No Protective Factors Assessment : No Responsible for Young Children: Yes Employed: No Supportive Family: Yes Good Rapport with Provider: No Interval History Chief Complaint "I had a mental breakdown". Review of Systems Sleep Information Total Hours of Sleep: 7.25 Meal Information Percent Meal Consumed - Breakfast: 75 Percent Meal Consumed - Lunch: 100 Percent Meal Consumed - Dinner: 60 Nutrition Comment: asleep Subjective Subjective Patient was seen & assessed and interval progress reviewed with treatment team. Met individually with the patient in order to assess her current mental status, evaluate her response to treatment, address questions and concerns that may arise, and coordinate any necessary changes in the patient's treatment regimen with the patient. Initially, the patient was quite vague regarding the reasons for hospitalization. As above, she gave us her chief complaint a report that she had had a "mental breakdown," but seemed reluctant or unable to tell me what her specific symptoms were. She later acknowledged that she carries a diagnosis of bipolar disorder. When asked if she felt her symptoms were more consistent with julien or with depression she said "julien." However, after I explained with the symptoms of julien are, the patient said, all, no. That is not julien. Depression." Much of today's encounter was devoted to building trust as the patient appeared to be somewhat uncomfortable and suspicious. With time, the patient became more disclosive. She told me that she had been troubled by the fact that she is having trouble keeping her thoughts organized and, eventually, she told me that she was having difficulty distinguishing reality from things that she was reading and books. Initially, the patient told me that she had read several books pertaining to methods of empowering -Americans in a racist society, and she explained that as she tried to practice some of what she had learned in these books she became more confused and disorganized in her thinking. Within this context the patient said that she began to fear that her family (particularly her mother, and her two younger siblings) met her harm and, eventually, they were trying to kill her. Also, she notes that there had been some question regarding the paternity of her [id number] son, and her boyfriend submitted to a paternity test which showed that he was, in fact, the father of the patient's son, but the patient doubted the veracity of the test. I tried to elicit past symptoms of julien or hypomania and, essentially, the patient described her mood as being "up and down" over time, but describes her "up" periods as consisting of her feeling "happy." She denies typical symptoms of julien or hypomania such as decreased desire for sleep, increased energy, elated expansive or irritable mood, impulsive self-destructive behaviors, diminished judgment, flight of ideas, or feedback from others that she was talking too much or too fast. Of note is that she said that she had not engaged in sexual activities that were impulsive, but later told me that she and her boyfriend were in a monogamous relationship but she was having sex outside of the relationship. However, she indicated that this behavior may have been a function of her need to secure additional money for her college tuition. Today, the patient tells me that she feels that her thinking has become "a little more organized," and she acknowledges that she had stopped taking olanzapine because of excess sedation and also because she feels it causes a "buzzing" in her ears. She reports that she does not hear distinct voices, but hears a humming or buzzing noise and only when she takes Zyprexa. She received a dose of Zyprexa last night, and also received Haldol and Ativan in the emergency department. However, she asks that Zyprexa be discontinued because she has had the above- referenced adverse effects. We discussed alternatives, the patient agreed to a trial of aripiprazole. Physical Exam Psychiatric Orientation: alert, oriented x 3 and cooperative Apperance: appropriately dressed, appropriately groomed and appeared stated age Eye Contact: good eye contact In fact, the patient stares somewhat intently at the interviewer throughout the encounter. When comment was made about this, the patient said, "oh, I was just trying to have good eye contact. I know that 1 of the things you look for." Motor Behavior: steady gait and station and no abnormal motor movements Patient speech was spontaneous, but was somewhat slowed and deliberate. Affect: + constricted affect "My mood is that I want to go home and see my son!" Later, the patient does acknowledge that she feels "down." Thought Process: + looseness of associations and + concrete thought process Thought Content: + delusions (Patient reports that she no longer fears that her family is trying to kill her, but her denials are not particularly convincing.) and + derealization Suicidal Thoughts: denies suicidal thoughts Patient reports that she made a suicide attempt in high school. She had suicidal thoughts several years ago and was hospitalized on 2 occasions psychiatrically, but did not make actual suicide attempts. Homicidal Thoughts: denies homicidal thoughts Hallucinations: no auditory hallucinations, no visual hallucinations and no tactile hallucinations Patient reports that she hears a "buzzing sound" that other people do not hear, but attributes this to olanzapine. Of note is that she initially attributed the buzzing to "Zyprexa," and then told me that she had no problem with "olanzapine." When it was explained to her that Zyprexa and olanzapine of the same medicine, she said, "well I only had the one dose. Last night." Cognition: recent memory grossly intact and remote memory grossly intact Estimated Intelligence: + above average estimated intelligence Insight: + impaired insight Judgement: + impaired judgement Vital Signs (Past 24 Hours) Last Vital Signs Temp 36.7 C 09/04/19 06:45 Pulse 89 09/04/19 06:45 Resp 18 09/04/19 06:45 BP 102/72 09/04/19 06:45 Pulse Ox 99 09/03/19 09:21 Results & Data ([facility]) Laboratory Results Laboratory Results - last 24 hr 09/04/19 07:31 Fasting Glucose 88 Triglycerides 50 Cholesterol 155 LDL Cholesterol, Calc 73 VLDL Cholesterol, Calc 10 HDL Cholesterol 72 Cholesterol/HDL Ratio 2 Current Inpatient Medications Current Inpatient Medications: Current Inpatient Medications Acetaminophen (Tylenol) 650 mg PO Q4H PRN PRN Reason: Headache or Minor Fever Stop: 10/03/19 14:03 Al Hydrox/Mg Hydrox/Simethicone (Maalox) 30 ml PO Q4H PRN PRN Reason: GI Upset Stop: 10/03/19 14:03 Bismuth Subsalicylate (Kaopectate) 15 ml PO PRN PRN PRN Reason: Loose Stool Stop: 10/03/19 14:03 Hydroxyzine HCl (Vistaril) 50 mg PO HSZ PRN PRN Reason: Insomnia Stop: 10/03/19 14:03 Hydroxyzine HCl (Vistaril) 25 mg PO Q4H PRN PRN Reason: Anxiety Stop: 10/03/19 14:03 Magnesium Hydroxide (Milk Of Magnesia) 30 ml PO DAILY PRN PRN Reason: Constipation Stop: 10/03/19 14:03 Olanzapine (Zyprexa) 5 mg PO HS EMBER Stop: 10/03/19 21:59 Last Admin: 09/03/19 21:34 Dose: 5 mg Documented by: Sodium Chloride ([place] Nasal) 1 - 2 sprays NA PRN PRN PRN Reason: Nasal Dryness/Congestion Stop: 10/03/19 14:03
[2019-09-04] MEDS: PERPHENAZINE 2 MG TABLET PO SCH (17:42)
[2019-09-05 03:25] LABS: Marijuana Quant, GCMS Urine 2660 ng/mL (<5)
[2019-09-05] MEDS: PERPHENAZINE 2 MG TABLET PO SCH (07:35)
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
[2019-09-06] MEDS: PERPHENAZINE 2 MG TABLET PO SCH (08:31)
--- NOTE | 2019-09-06 10:44 | Discharge Summary ---
Date of Service September 06, 2019 History of Present Illness Patient presented to the ER yesterday, 09/02/2019, on a 302 warrant. The warrant was completed by her mother, and states "talking and not making sense. Stares off into space. Talking about hurting herself by taking pills and or starving herself to . Will not shower or brush teeth and has not been eating. We have to pleaded with her to eat, take a shower, brushed teeth, etc. Not taking olanzapine because she cannot take care of her son properly while on this medication. We and her partner have been helping her." Her mother had taken her to the [facility] crisis facility, and inpatient treatment was recommended. The patient was uncooperative in the ER, was angry, combative, punching the bed and side rails. She received Haldol 5 mg and Ativan 2 mg. She said she "fucked up. I did a bad thing." She admitted to cannabis use earlier in the day, and UDS was positive for THC. She was disorganized, often answering with unrelated or nonsensical information. She attempted to leave her room in the ER, and grabbed onto the physician's arm and refused to let go. Her mother and sister were present in the ER, and reported the patient has not been doing well for months, with acute on chronic decline over the past few days. She had not been eating, refusing to shower or perform other ADLs, and refusing to take her psychotropic medications. She has a [id number] child, and has not been able to care for him. She was supposed to follow-up at [facility], but did not follow through with transfer when they closed. Admission labs notable for RBC 4.09, normal CMP, negative test, normal urinalysis, UDS + THC. On my assessment, he is calm and cooperative, but a limited historian. She has a difficult time explaining how she came to be in the hospital, talking about a book she read 7 months ago, which caused her to "go crazy." She reports paranoia, stating "when I go outside, it feels like everyone's looking at me, staring." She denies suicidal thoughts, homicidal thoughts, and auditory hallucinations. She denies problems with sleep, appetite, and ADLs, and cannot explain why her family expressed concerns and said she was not caring for herself. She is unemployed, lives with the father of her child, and spends her days at home. She has not been in outpatient treatment or on psychotropic medications for several months, and cannot explain why. She describes mood as "buzzed out, mellow." She believes she has bipolar disorder, but cannot describe past mood episodes. She denies racing thoughts, euphoria, mood swings, increased energy, or inability to sleep. When asked about her goals for treatment, she says "go to [facility] I guess." Explained that she was already admitted to [facility], and briefly reviewed the treatment offered. Physical Exam Psychiatric at time of discharge sessions Orientation: alert, oriented x 3 and cooperative Apperance: appropriately dressed, appropriately groomed and appeared stated age Eye Contact: good eye contact Motor Behavior: steady gait and station and no abnormal motor movements Speech: normal rate/rhythm/volume of speech Affect: euthymic affect and mood congruent with affect "good mood" Thought Process: goal directed thought process, linear/logical thought process, clear/coherent thought process and thought association intact; no thought blocking, no looseness of associations and thought process not concrete Thought Content: not paranoid, no delusions (Patient reports that she no longer fears that her family is trying to kill her, but her denials are not particularly convincing.) and no derealization Suicidal Thoughts: denies suicidal thoughts Homicidal Thoughts: denies homicidal thoughts Hallucinations: no auditory hallucinations, no visual hallucinations and no tactile hallucinations Cognition: recent memory grossly intact, remote memory grossly intact and attention grossly intact Estimated Intelligence: + above average estimated intelligence Insight: good insight Judgement: good judgement Vital Signs (Past 24 Hours) Last Vital Signs Temp 36.6 C 09/06/19 06:00 Pulse 90 09/06/19 06:00 Resp 16 09/06/19 06:00 BP 111/78 09/06/19 06:00 Pulse Ox 99 09/03/19 09:21 Principal Diagnosis other mood disorder and other mixed anxiety disorder Psychiatric Data Day of Discharge Assessment 09/05 - pt had a good rest of yesterday and no issues with sleep last night, she is in a good mood this morning. She was able to see her boyfriend and their son out in the garden area given current no visitation policy with the COVID 19 concerns which was nice for her. She denied any s/e to perphenazine and expressed openness to continuing it to help her feel more emotionally stable. She expressed interest in psychotherapy appt to help her deal with her emotional reactions and her anxieties and catastrophizing reactions that can get to a rather paranoid level. She is expressing aim to cease any cannabis usage given its potential to aggravate or even precipitate such paranoid based reactions. She denied SI or HI. She continues to deny h/o overt manic symptoms it appears her mood symptoms are anxiety and at times depressive related with a tendency to fear worst case outcomes lee around having custody of her child taken away from her. Reality testing is fully intact and pt expressed ways to ground herself and handle triggering situations with aim to settle herself down. See mental status exam for day of discharge in MSE section and hospital course in hospital course section. Pt is seeking discharge and assessment has found pt to be appropriate for discharge at this time with pt expressing interest in aftercare and treatment recommendations. She expressed plan to abstain fully from cannabis. She feels that her bf and mother are rather supportive and also encouraging her to attend therapy appts. She shared how she had some limited therapy when she was about [age] years old and now wishes she had continued it for a longer time. Family meeting while on the unit was helpful and family dynamics was noted and addressed and appeared ot help increase supporrt and further encourage therapy appts. Transition of Care Transition Of Care Record: was reviewed with the patient Advance Directives Advance Directives Information Provided: Yes Advance Directives: No Mental Health Advance Directive: No Advance Directives on File: No Living Will: No Power of Weight Loss Centre Manager: No Advance Directives Reason:: Declines as Mental Health Visit. Risk Factors Assessment Male: No : No Do You Have Access To A Gun?: No Health Problems: No Mental Health Diagnoses: Yes Substance Use Disorders: Yes Previous Attempt: Yes Family History of Suicide: No Previous Psychiatric Hospitalization: Yes Hopelessness: No Smoker: No Protective Factors Assessment : No Responsible for Young Children: Yes Employed: No Supportive Family: Yes Good Rapport with Provider: No Discharge Data Lab Results 09/02/19 09/02/19 09/02/19 20:35 20:35 20:35 WBC 6.88 RBC 4.09 L Hgb 12.5 Hct 38.0 MCV 92.9 MCH 30.6 MCHC 32.9 RDW Std Deviation 44.9 RDW Coeff of Ana 13.3 Plt Count 368 MPV 9.1 Immature Gran % (Auto) 0.1 Neut % (Auto) 62.9 Lymph % (Auto) 32.6 Catahoula % (Auto) 4.2 Eos % (Auto) 0.1 Baso % (Auto) 0.1 Immature Gran # (Auto) 0.01 Neut # (Auto) 4.32 Lymph # (Auto) 2.24 Catahoula # (Auto) 0.29 Eos # (Auto) 0.01 Baso # (Auto) 0.01 Sodium 136 Potassium 3.9 Chloride 104 Carbon Dioxide 26 Anion Gap 5.0 BUN 10 Creatinine 0.86 Est Cr Clr Drug Dosing 82.0 Est GFR ( Amer) 111.1 Est GFR (Non-Af Amer) 95.9 BUN/Creatinine Ratio 11.6 Glucose 99 Fasting Glucose Calcium 9.3 Total Bilirubin 0.4 AST 11 L ALT 18 Alkaline Phosphatase 58 Total Protein 8.1 Albumin 4.0 Globulin 4.1 H Albumin/Globulin Ratio 1.0 Triglycerides Cholesterol LDL Cholesterol, Calc VLDL Cholesterol, Calc HDL Cholesterol Cholesterol/HDL Ratio TSH 0.796 HCG, Qual Urine Color Urine Appearance Urine pH Ur Specific Sunflower Urine Protein Urine Glucose (UA) Urine Ketones Urine Blood Urine Nitrite Urine Bilirubin Urine Urobilinogen Ur Leukocyte Esterase Salicylates < 1.7 L Urine Opiates Screen Ur Methadone, Qual Acetaminophen < 2 L Urine Barbiturates Ur Phencyclidine (PCP) U Amphetamin/Meth Scrn MDMA (Ecstasy) Screen U Benzodiazepines Scrn Ur Cocaine Metabolite U Marijuana (THC) Screen U Marijuana THC Carboxy Drug Screen Comment Ethyl Alcohol mg/dL 09/02/19 09/02/19 09/03/19 20:35 20:38 03:51 WBC RBC Hgb Hct MCV MCH MCHC RDW Std Deviation RDW Coeff of Ana Plt Count MPV Immature Gran % (Auto) Neut % (Auto) Lymph % (Auto) Catahoula % (Auto) Eos % (Auto) Baso % (Auto) Immature Gran # (Auto) Neut # (Auto) Lymph # (Auto) Catahoula # (Auto) Eos # (Auto) Baso # (Auto) Sodium Potassium Chloride Carbon Dioxide Anion Gap BUN Creatinine Est Cr Clr Drug Dosing Est GFR ( Amer) Est GFR (Non-Af Amer) BUN/Creatinine Ratio Glucose Fasting Glucose Calcium Total Bilirubin AST ALT Alkaline Phosphatase Total Protein Albumin Globulin Albumin/Globulin Ratio Triglycerides Cholesterol LDL Cholesterol, Calc VLDL Cholesterol, Calc HDL Cholesterol Cholesterol/HDL Ratio TSH HCG, Qual Negative Urine Color Yellow Urine Appearance Clear Urine pH 5.5 Ur Specific Sunflower 1.024 Urine Protein Negative Urine Glucose (UA) Negative Urine Ketones Negative Urine Blood Negative Urine Nitrite Negative Urine Bilirubin Negative Urine Urobilinogen Negative Ur Leukocyte Esterase Negative Salicylates Urine Opiates Screen Ur Methadone, Qual Acetaminophen Urine Barbiturates Ur Phencyclidine (PCP) U Amphetamin/Meth Scrn MDMA (Ecstasy) Screen U Benzodiazepines Scrn Ur Cocaine Metabolite U Marijuana (THC) Screen U Marijuana THC Carboxy Drug Screen Comment Ethyl Alcohol mg/dL < 3.0 09/03/19 09/03/19 09/04/19 03:57 03:57 07:31 WBC RBC Hgb Hct MCV MCH MCHC RDW Std Deviation RDW Coeff of Ana Plt Count MPV Immature Gran % (Auto) Neut % (Auto) Lymph % (Auto) Catahoula % (Auto) Eos % (Auto) Baso % (Auto) Immature Gran # (Auto) Neut # (Auto) Lymph # (Auto) Catahoula # (Auto) Eos # (Auto) Baso # (Auto) Sodium Potassium Chloride Carbon Dioxide Anion Gap BUN Creatinine Est Cr Clr Drug Dosing Est GFR ( Amer) Est GFR (Non-Af Amer) BUN/Creatinine Ratio Glucose Fasting Glucose 88 Calcium Total Bilirubin AST ALT Alkaline Phosphatase Total Protein Albumin Globulin Albumin/Globulin Ratio Triglycerides 50 Cholesterol 155 LDL Cholesterol, Calc 73 VLDL Cholesterol, Calc 10 HDL Cholesterol 72 Cholesterol/HDL Ratio 2 TSH HCG, Qual Urine Color Urine Appearance Urine pH Ur Specific Sunflower Urine Protein Urine Glucose (UA) Urine Ketones Urine Blood Urine Nitrite Urine Bilirubin Urine Urobilinogen Ur Leukocyte Esterase Salicylates Urine Opiates Screen Neg Ur Methadone, Qual Neg Acetaminophen Urine Barbiturates Neg Ur Phencyclidine (PCP) Neg U Amphetamin/Meth Scrn Neg MDMA (Ecstasy) Screen Neg U Benzodiazepines Scrn Neg Ur Cocaine Metabolite Neg U Marijuana (THC) Screen Pos H U Marijuana THC Carboxy 2660 H Drug Screen Comment SEE NOTE Ethyl Alcohol mg/dL Hospital Course (1) Bipolar 1 disorder: 09/02 -admitted on a 302 involuntary commitment. -Medically necessary private room due to disorganized and aggressive behavior in the emergency room. -Use of ANGELICA as needed. -Continue home dose of olanzapine 5 mg at bedtime, and explore other medication options. She reports past trials of other atypicals and lithium states all medications made her feel "like a zombie." Obtain records from past treatment. Will order fasting blood work for tomorrow for monitoring on an atypical. -Encourage group attendance and participation. Work on healthy coping skills and discharge safety plan. -Refer for outpatient mental health treatment. Clarify if she has a BAM. -Family meeting with boyfriend and/or mother. 09/03 -The patient reports today that she feels that her thinking has become somewhat more organized. She was able to disclose that her thoughts prior to admission had included a belief that her mother, her younger brother and her younger sister are conspiring to physically harm or kill her. -Patient, as noted above, believes that all second-generation antipsychotic medications taken by the patient to date have caused excess sedation and, she puts it, causing her to feel "like a zombie." We discussed various treatment options, including a trial of aripiprazolea medication that she has not taken in the past, to the best of her recollection. We also discussed perphenazine. Atypical antipsychotic medications, and given the somewhat unusual presentation for either pole of bipolar disorder, I will offer the patient a trial of perphenazine 2 mg a day, and we will discontinue olanzapine at the patient's request. 09/04 extensive review and discussion with pt today,exploring for psychotic symptoms and working through pt's resistance to medications and addressing underlying anxiety and dynamics that likely add to pt's presentation, advised therapy appt to address trust issues and improve grounding and improve security in interpersonal relationships and reality testing. encouraged abstaining from any cannabis usage with pt indicating openness to do so as could be a main sour ce of bringing out reality testing impairment and paranoid thinking. aiming for discharge 09/05 if continued progress noted and if continues to not exhibit acute safety concerns and if ongoing reality testing after review with team including review of family meeting and aftercare plans. Mental Health & Subst Abuse Tx Psychiatrist Name of Psychiatrist: Maykel Meadows - Dr. Shelton Psychiatrist's Date of Appointment with Psychiatrist: 09/08/19 Psychiatric Appointment Comment: [address], [place] [phone] Therapist Name of Therapist: Maykel Meadows - Dr. Sykes Therapist's Time of Therapist Appointment: Please follow up to schedule a therapy appointment Therapy Appointment Comment: [address] [place] [phone] Post Discharge Appointments Primary Care Physician Name Of Family Doctor: Maykel [facility]ows [facility] Time of Appointment with PCP: Please follow up as needed Provider Appointment Comment: [address] [place] [phone] Contact Information Discharge Discharge Address: [address] [place] [address] Discharge Plan Discharge Items Patient Disposition: Home - Home Health Services Reason For Visit: BIPOLAR Discharge Diagnosis: other mood disorder and other mixed anxiety disorder Activity: Resume your previous activity Non-emergency contact: Primary Care Provider and Psychiatrist Call non-emergency contact if: you have any medication questions and your symp toms worsen Follow-up/Referrals: Jovani Agarwal MD [Primary Care Provider] - Diet: Regular Addtl Attending Provider Instructions: SPECIAL CARE INSTRUCTIONS: 1. Follow through with your scheduled aftercare appointments. If unable to keep an appointment, please call to reschedule. 2. Take your medication only as prescribed. Medication should not be changed or stopped without the approval of your doctor. In the event of worsening symptoms or concerns about side effects, contact your doctor immediately. 3. Utilize new healthy coping skills, anger management skills, and stress management skills learned during your hospitalization. Journal feelings and process them with a support person. Identify stressors or situations that may result in relapse, deterioration or inappropriate behaviors and develop a plan to deal with those issues. 4. If your coping skills are ineffective and you are in crisis, contact your outpatient providers for direction. If unable to reach your providers, please call the CAN HELP LINE AT or go to the closest Emergency Room. 5. Avoid alcohol and un-prescribed drugs. 6. You have been provided with the Mental Health Advance Directives Pamphlet for your review. AFTERCARE APPOINTMENTS: * Please call your insurance company prior to your scheduled appointment to confirm your aftercare providers are covered. Take your insurance information to your appointments. WHO TO CALL AND WHEN: Medical Emergencies: For questions or emergencies related to your hospital stay, please contact the Inpatient Behavioral Health Unit at [phone]. A newspaper distributor supervisor is on-call 15/10 for the Behavioral Health Unit for emergencies At any time you feel your situation is an emergency, you may also call 911 immediately. Your Doctors Instructions noted above were prepared by provider Cali Esposito MD. Pending Studies at Discharge: No Stand-Alone Forms: My [facility], Smoking Cessation, Suicide Prevention Resources Medications and DC Order Prescriptions: New perphenazine 2 mg Tablet 2 mg PO DAILY 30 Days Qty: 30 RF: 0 Discontinued olanzapine 5 mg tablet 5 mg PO HS RF: 0 Discharge Orders: Discharge Order (Routine); Ordered 09/06/19 Ordered By: Cali Esposito Admission Data Admit Date/Time: 09/03/19 09:40 Attending Provider: Ban Vo Admit Provider: Ban Vo Primary Care Provider: Jovani Agarwal Other Interventions: PSY Interdisciplinary Discharge Planning Last Done: 09/06/19 09:01 Coding Level of Care Code 73107 D/C day mgmt > 30 min Diagnoses Bipolar 1 disorder F31.9
== END 2019-09-06 11:07 | disposition home or self-care (01) | DRG 885 ==
LOC: ED 17:38 → 3S 09-03 09:40

== ENCOUNTER 2020-12-23 13:09 | Inpatient (IN) ==
[2020-12-23 14:39] LABS: Appearance Urine Clear (Clear); Blood Urine Trace (Negative); Color Urine Dark Yellow; Epithelial Cell Urine Auto >30 /lpf (0-5); Glucose Urine UA Negative (Negative); Ketones Urine 4+ (Negative); Leukocyte Esterase Urine Trace (Negative); Nitrite Urine Negative (Negative); Protein Urine 1+ (Negative); RBC Urine Automated 0-4 /hpf (0-4); Specific Gravity Urine 1.035 (1.000-1.030); Urobilinogen Urine Negative (Negative)
[2020-12-23 14:42] LABS: Bilirubin Urine 1+ (Negative)
--- NOTE | 2020-12-23 14:47 | Emergency Department Note ---
History of Present Illness General Chief complaint: Mental Health Evaluation Time Seen by Provider: 12/23/20 14:01 Source: patient Mode of arrival: other Limitations: no limitations History of Present Illness Provider complaint: Mental health evaluation This is a 25-year-old female who comes in voluntarily after calling the police stating that she needed help. Patient states she is a history of schizophrenia and bipolar disorder and has been on multiple medications however stopped taking them "sometime" ago. Patient claims several medications that she was taking at some point. She states she is not taking anything currently. She states she has had inpatient mental health treatment. She believes her most recent regimen was Abilify and lithium. Patient states she does use marijuana daily, denies any other recreational drugs or alcohol use. Pt seen during a time of high acuity and national emergency pandemic while wearing PPE. Home Medications Medication Instructions Recorded Confirmed Type aripiprazole 10 mg tablet 10 mg PO QAM 10/18/19 12/23/20 History lithium carbonate 150 mg capsule 450 mg PO HS 10/18/19 12/23/20 History Allergies Allergy/AdvReac Type Severity Reaction Status Date / Time No Known Allergies Allergy Verified 10/19/19 03:51 Past Med/Surg History Medical History (Updated 12/23/20 @ 23:14 by Rupal Greene DO) Bipolar 1 disorder History of suicidal ideation Surgical History History of tooth extraction Family History Other Heart disease Social History Smoking Status: Former smoker Tobacco Type: Cigarettes Hx Alcohol Use: No Hx Substance Use: No Preferred Language: [place] Island[place] Communication Ability: Effective Senior Business Process Analyst Required: No Beliefs That Will Affect Care: None marital status: Single Current Living Situation: Parent Current Living Situation Comment: Lives 50/50 with friend Tr and mother Williams Feels Safe at Home: Yes Assistive Devices: None Review of Systems A total of 10 systems reviewed and were otherwise negative All systems reviewed & are unremarkable except as noted in HPI & below Physical Exam Vital Signs Vital Signs - 24 hr 12/23/20 13:13 12/23/20 13:25 12/23/20 20:08 Pulse Rate 98 H Pulse Rate [Left Finger] 95 H Respiratory Rate 18 18 Respiratory Effort / Characteristics Non-Labored Blood Pressure 133/89 Blood Pressure [Left Arm] 109/74 Blood Pressure Mean [Left Arm] 85 Blood Pressure Position [Left Arm] Sitting Pulse Oximetry 100 100 Oxygen Delivery Method Room Air Room Air Sepsis Recent Fever Within 48 Hours No Sepsis New/Unexplained Change in Mental Status N/A Sepsis Action Taken by Nursing No Action Required GENERAL: alert, well appearing, well nourished, no distress, non-toxic EYE EXAM: normal conjunctiva, PERRL and EOM's grossly intact OROPHARYNX: no exudate, no erythema, lips, buccal mucosa, and tongue normal and mucous membranes are moist NECK: supple, no nuchal rigidity, no adenopathy, non-tender LUNGS: Clear to auscultation. Normal chest wall mechanics, no w/r/r HEART: no murmurs, S1 normal and S2 normal ABDOMEN: abdomen soft, non-tender, normo-active bowel sounds, no masses, no rebound or guarding. BACK: Back is symmetrical on inspection and there is no deformity, no midline tenderness, no CVA tenderness. SKIN: no rashes and no bruising UPPER EXTREMITIES: upper extremities are grossly normal. FROM, nml pulses b/l. LOWER EXTREMITIES: No pitting edema. FROM, nml pulses b/l. NEURO EXAM: Normal sensorium, cranial nerves II-XII grossly intact, normal speech, no gross weakness of arms, no gross weakness of legs. Gross sensation intact. PSYCH: Makes good eye contact, flight of ideas, no pressured speech, disorganized thinking Course Course 1654: Pt seen by heel caser. CYS involved, pt has a hospice case manager. Roberta discussed the patient with them. Patient stated she didn't feel safe at home with her child. She had called her mom. Mom reports patient was crying, saying nonsensical things. Mom states she tried to hurt herself with a pen and hospice case manager also concerned for mothers safety. Medical Decision Making Differential Diagnosis Differential diagnoses considered include mood disorder, infection, hypoglycemia, electrolyte abnormalities, cardiac sources, intracerebral event, toxicologic, neurologic, as well as others. Medical Records Attestation: I reviewed the patient's medical records. Home Medications Current Medication List: was personally reviewed by me Laboratory Data Attestation: I reviewed the patient's lab results. Result diagrams: 12/23/20 14:26 12/23/20 14:26 Lab Results 12/23/20 12/23/20 12/23/20 Range/Units 13:15 13:15 14:26 WBC 5.53 (4.8-10.8) K/uL RBC 4.32 (4.2-5.4) M/uL Hgb 13.3 (12.0-16.0) g/dL Hct 40.3 (37-47) % MCV 93.3 (80-100) fL MCH 30.8 (25-34) pg MCHC 33.0 (32-36) g/dL RDW Std Deviation 42.2 (36.4-46.3) fL RDW Coeff of Ana 12.4 (11.5-14.5) % Plt Count 302 (130-400) K/uL MPV 9.5 (7.4-10.4) fL Immature Gran % (Auto) 0.2 % Neut % (Auto) 63.7 % Lymph % (Auto) 27.7 % [place] % (Auto) 5.8 % Eos % (Auto) 2.4 % Baso % (Auto) 0.2 % Neut # (Auto) 3.53 (1.4-6.5) K/uL Lymph # (Auto) 1.53 (1.2-3.4) K/uL [place] # (Auto) 0.32 (0.11-0.59) K/uL Eos # (Auto) 0.13 (0-0.5) K/uL Baso # (Auto) 0.01 (0-0.2) K/uL Immature Gran # (Auto) 0.01 (0.00-0.02) K/uL Sodium (136-145) mmol/L Potassium (3.5-5.1) mmol/L Chloride (98-107) mmol/L Carbon Dioxide (21-32) mmol/L Anion Gap (3-11) BUN (7-18) mg/dl Creatinine (0.6-1.2) mg/dl Est Cr Clr Drug Dosing ml/min Est GFR ( Amer) ml/min Est GFR (Non-Af Amer) ml/min BUN/Creatinine Ratio (10-20) Glucose (70-99) mg/dl Calcium (8.5-10.1) mg/dl Total Bilirubin (0.2-1) mg/dl AST (15-37) U/L ALT (12-78) U/L Alkaline Phosphatase (45-117) U/L Total Protein (6.4-8.2) gm/dl Albumin (3.4-5.0) gm/dl Globulin (2.5-4.0) gm/dl Albumin/Globulin Ratio (0.9-2) TSH (0.300-4.500) uIu/ml HCG, Qual (Negative) Urine Color Dark Yellow Urine Appearance Clear (Clear) Urine pH 6.0 (4.5-7.5) Ur Specific [place] 1.035 H (1.000-1.030) Urine Protein 1+ H (Negative) Urine Glucose (UA) Negative (Negative) Urine Ketones 4+ H (Negative) Urine Blood Trace H (Negative) Urine Nitrite Negative (Negative) Urine Bilirubin 1+ H (Negative) Urine Urobilinogen Negative (Negative) Ur Leukocyte Esterase Trace H (Negative) Urine WBC (Auto) 10-30 H (0-5) /hpf Urine RBC (Auto) 0-4 (0-4) /hpf U Hyaline Cast (Auto) 1-5 (0-5) /lpf U Epithel Cells (Auto) >30 H (0-5) /lpf Urine Bacteria (Auto) 1+ H (Negative) Urine Mucus Present A (None Prsent) Salicylates (2.8-20) mg/dl Urine Opiates Screen Neg (Neg) Ur Methadone, Qual Neg (Neg) Acetaminophen (10-30) ug/ml Urine Barbiturates Neg (Neg) Ur Phencyclidine (PCP) Neg (Neg) U Amphetamin/Meth Scrn Neg (Neg) MDMA (Ecstasy) Screen Neg (Neg) U Benzodiazepines Scrn Neg (Neg) Ur Cocaine Metabolite Neg (Neg) U Marijuana (THC) Screen Pos H (Neg) Ethyl Alcohol mg/dL (0-3) mg/dl COVID-19 Eval Order SARS-CoV-2, RNA, NAAT (NEGATIVE) 12/23/20 12/23/20 12/23/20 Range/Units 14:26 14:26 14:26 WBC (4.8-10.8) K/uL RBC (4.2-5.4) M/uL Hgb (12.0-16.0) g/dL Hct (37-47) % MCV (80-100) fL MCH (25-34) pg MCHC (32-36) g/dL RDW Std Deviation (36.4-46.3) fL RDW Coeff of Ana (11.5-14.5) % Plt Count (130-400) K/uL MPV (7.4-10.4) fL Immature Gran % (Auto) % Neut % (Auto) % Lymph % (Auto) % [place] % (Auto) % Eos % (Auto) % Baso % (Auto) % Neut # (Auto) (1.4-6.5) K/uL Lymph # (Auto) (1.2-3.4) K/uL [place] # (Auto) (0.11-0.59) K/uL Eos # (Auto) (0-0.5) K/uL Baso # (Auto) (0-0.2) K/uL Immature Gran # (Auto) (0.00-0.02) K/uL Sodium 138 (136-145) mmol/L Potassium 3.7 (3.5-5.1) mmol/L Chloride 106 (98-107) mmol/L Carbon Dioxide 21 (21-32) mmol/L Anion Gap 11.0 (3-11) BUN 12 (7-18) mg/dl Creatinine 0.93 (0.6-1.2) mg/dl Est Cr Clr Drug Dosing 74.6 ml/min Est GFR ( Amer) 100.4 ml/min Est GFR (Non-Af Amer) 86.6 ml/min BUN/Creatinine Ratio 12.8 (10-20) Glucose 62 L (70-99) mg/dl Calcium 9.3 (8.5-10.1) mg/dl Total Bilirubin 0.6 (0.2-1) mg/dl AST 12 L (15-37) U/L ALT 11 L (12-78) U/L Alkaline Phosphatase 52 (45-117) U/L Total Protein 8.4 H (6.4-8.2) gm/dl Albumin 4.7 (3.4-5.0) gm/dl Globulin 3.7 (2.5-4.0) gm/dl Albumin/Globulin Ratio 1.3 (0.9-2) TSH 0.508 (0.300-4.500) uIu/ml HCG, Qual (Negative) Urine Color Urine Appearance (Clear) Urine pH (4.5-7.5) Ur Specific [place] (1.000-1.030) Urine Protein (Negative) Urine Glucose (UA) (Negative) Urine Ketones (Negative) Urine Blood (Negative) Urine Nitrite (Negative) Urine Bilirubin (Negative) Urine Urobilinogen (Negative) Ur Leukocyte Esterase (Negative) Urine WBC (Auto) (0-5) /hpf Urine RBC (Auto) (0-4) /hpf U Hyaline Cast (Auto) (0-5) /lpf U Epithel Cells (Auto) (0-5) /lpf Urine Bacteria (Auto) (Negative) Urine Mucus (None Prsent) Salicylates < 1.7 L (2.8-20) mg/dl Urine Opiates Screen (Neg) Ur Methadone, Qual (Neg) Acetaminophen < 2 L (10-30) ug/ml Urine Barbiturates (Neg) Ur Phencyclidine (PCP) (Neg) U Amphetamin/Meth Scrn (Neg) MDMA (Ecstasy) Screen (Neg) U Benzodiazepines Scrn (Neg) Ur Cocaine Metabolite (Neg) U Marijuana (THC) Screen (Neg) Ethyl Alcohol mg/dL < 3.0 (0-3) mg/dl COVID-19 Eval Order SARS-CoV-2, RNA, NAAT (NEGATIVE) 12/23/20 12/23/20 12/23/20 Range/Units 14:26 17:14 17:14 WBC (4.8-10.8) K/uL RBC (4.2-5.4) M/uL Hgb (12.0-16.0) g/dL Hct (37-47) % MCV (80-100) fL MCH (25-34) pg MCHC (32-36) g/dL RDW Std Deviation (36.4-46.3) fL RDW Coeff of Ana (11.5-14.5) % Plt Count (130-400) K/uL MPV (7.4-10.4) fL Immature Gran % (Auto) % Neut % (Auto) % Lymph % (Auto) % [place] % (Auto) % Eos % (Auto) % Baso % (Auto) % Neut # (Auto) (1.4-6.5) K/uL Lymph # (Auto) (1.2-3.4) K/uL [place] # (Auto) (0.11-0.59) K/uL Eos # (Auto) (0-0.5) K/uL Baso # (Auto) (0-0.2) K/uL Immature Gran # (Auto) (0.00-0.02) K/uL Sodium (136-145) mmol/L Potassium (3.5-5.1) mmol/L Chloride (98-107) mmol/L Carbon Dioxide (21-32) mmol/L Anion Gap (3-11) BUN (7-18) mg/dl Creatinine (0.6-1.2) mg/dl Est Cr Clr Drug Dosing ml/min Est GFR ( Amer) ml/min Est GFR (Non-Af Amer) ml/min BUN/Creatinine Ratio (10-20) Glucose (70-99) mg/dl Calcium (8.5-10.1) mg/dl Total Bilirubin (0.2-1) mg/dl AST (15-37) U/L ALT (12-78) U/L Alkaline Phosphatase (45-117) U/L Total Protein (6.4-8.2) gm/dl Albumin (3.4-5.0) gm/dl Globulin (2.5-4.0) gm/dl Albumin/Globulin Ratio (0.9-2) TSH (0.300-4.500) uIu/ml HCG, Qual Negative (Negative) Urine Color Urine Appearance (Clear) Urine pH (4.5-7.5) Ur Specific [place] (1.000-1.030) Urine Protein (Negative) Urine Glucose (UA) (Negative) Urine Ketones (Negative) Urine Blood (Negative) Urine Nitrite (Negative) Urine Bilirubin (Negative) Urine Urobilinogen (Negative) Ur Leukocyte Esterase (Negative) Urine WBC (Auto) (0-5) /hpf Urine RBC (Auto) (0-4) /hpf U Hyaline Cast (Auto) (0-5) /lpf U Epithel Cells (Auto) (0-5) /lpf Urine Bacteria (Auto) (Negative) Urine Mucus (None Prsent) Salicylates (2.8-20) mg/dl Urine Opiates Screen (Neg) Ur Methadone, Qual (Neg) Acetaminophen (10-30) ug/ml Urine Barbiturates (Neg) Ur Phencyclidine (PCP) (Neg) U Amphetamin/Meth Scrn (Neg) MDMA (Ecstasy) Screen (Neg) U Benzodiazepines Scrn (Neg) Ur Cocaine Metabolite (Neg) U Marijuana (THC) Screen (Neg) Ethyl Alcohol mg/dL (0-3) mg/dl COVID[facility]19 [facility], NAAT NEGATIVE (NEGATIVE) MDM Narrative This is a 25-year-old female with a history of bipolar disorder and possible alexus or history of schizophrenia who admits to noncompliance. Concern from patient's mother and counter caser upon conversation with our counter caser here. Patient calm and compliant here, labs are reassuring, patient with scattered ideas and tangential thinking. Patient seen and evaluated and accepted by [facility]. 201 signed. Impression & Plan Mood disorder, Non-compliance, Marijuana use Discharge Plan Visit Data Chief Complaint: Mental Health Evaluation ED Provider: Rupal Grenee Discharge Problem: Mood disorder, Non-compliance, Marijuana use Patient Disposition: Home - Self-Care Discharge Instructions Interventions: ED Discharge Assessment Last Done: 12/23/20 20:08
[2020-12-23 14:48] LABS: Basophils # (auto) 0.01 K/uL (0-0.2); Basophils % (auto) 0.2 %; Eosinophils # (auto) 0.13 K/uL (0-0.5); Eosinophils % (auto) 2.4 %; Hematocrit (blood only) 40.3 % (37-47); Hemoglobin 13.3 g/dL (12.0-16.0); Immature Granulocytes # (auto) 0.01 K/uL (0.00-0.02); Immature Granulocytes % (auto) 0.2 %; Lymphocytes # (auto) 1.53 K/uL (1.2-3.4); Lymphocytes % (auto) 27.7 %; Mean Corpuscular Hemoglobin 30.8 pg (25-34); Mean Corpuscular Volume 93.3 fL (80-100); Mean Platelet Volume 9.5 fL (7.4-10.4); Monocytes # (auto) 0.32 K/uL (0.11-0.59); Monocytes % (auto) 5.8 %; Neutrophils # (auto) 3.53 K/uL (1.4-6.5); Neutrophils % (auto) 63.7 %; Platelet Count 302 K/uL (130-400); RDW Coefficient of Variation 12.4 % (11.5-14.5); RDW Standard Deviation 42.2 fL (36.4-46.3); Red Blood Count 4.32 M/uL (4.2-5.4); White Blood Count 5.53 K/uL (4.8-10.8)
[2020-12-23 15:02] LABS: Bacteria Urine Automated 1+ (Negative); Mucus Urine Present (None Prsent)
[2020-12-23 15:06] LABS: Amphetamines+Metham, Urine Neg (Neg); Barbiturates, Urine Neg (Neg); Benzodiazepine, Urine Neg (Neg); Cocaine, Urine Neg (Neg); MDMA (Ecstacy), Urine Neg (Neg); Methadone, Urine Neg (Neg); Opiate, Urine Neg (Neg); Phencyclidine, Urine Neg (Neg)
[2020-12-23 15:12] LABS: Pregnancy Test, Serum Negative (Negative)
[2020-12-23 15:17] LABS: Albumin Level 4.7 gm/dl (3.4-5.0); BUN Creatinine Ratio 12.8 (10-20); Calcium 9.3 mg/dl (8.5-10.1); Creatinine Clr Calc Pharmacy 74.6 ml/min; Est GFR (African American) 100.4 ml/min; Est GFR (Non-African American) 86.6 ml/min; Potassium 3.7 mmol/L (3.5-5.1)
[2020-12-23 15:27] LABS: Albumin Globulin Ratio 1.3 (0.9-2); Bilirubin,Total 0.6 mg/dl (0.2-1); Globulin 3.7 gm/dl (2.5-4.0); Thyroid Stimulating Hormone 0.508 uIu/ml (0.300-4.500); Total Protein 8.4 gm/dl (6.4-8.2)
[2020-12-23 15:28] LABS: Acetaminophen < 2 ug/ml (10-30); Salicylate < 1.7 mg/dl (2.8-20)
[2020-12-23] MEDS ORDERED: BISMUTH SUBSALICYLATE LIQD 236 ML PO PRN (20:57)
[2020-12-23] MEDS ORDERED: MAGNESIUM HYDROXIDE SUSP 30 ML UDC PO PRN (20:57)
[2020-12-23] MEDS ORDERED: ALUMINUM/MAGNESIUM SUSP 30 ML UDC PO PRN (20:57)
[2020-12-23] MEDS ORDERED: SODIUM CHLORIDE 0.65% NA SOLN 45 ML (OCEAN) PRN (20:57)
[2020-12-23] MEDS ORDERED: ACETAMINOPHEN 325 MG TAB PO PRN (20:57)
[2020-12-23] MEDS ORDERED: hydrOXYzine HCl 25 MG TAB PO PRN ×2 (20:57)
[2020-12-23] MEDS ORDERED: MELATONIN 3 MG TAB PO PRN (20:59)
[2020-12-23] MEDS ORDERED: FLUARIX QUADRIVALENT 0.5 ML SYR IM ONE (21:50)
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
[2020-12-24] MEDS ORDERED: QUEtiapine FUMARATE 25 MG TABLET PO PRN (14:51)
[2020-12-24] MEDS ORDERED: guaiFENesin 600 MG TABCR PO PRN (14:53)
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
[2020-12-24] MEDS ORDERED: QUEtiapine FUMARATE 200 MG TAB PO SCH (22:00)
[2020-12-25 08:33] LABS: Glucose Fasting 91 mg/dl (70-99)
[2020-12-25 08:40] LABS: Chol HDL Ratio 2; Cholesterol 113 mg/dl (0-200); HDL Cholesterol 62 mg/dl; LDL Cholesterol Calculated 42 mg/dl; Triglycerides 44 mg/dl (0-150); VLDL Cholesterol 9 mg/dl
--- NOTE | 2020-12-25 11:40 | Psychiatric Progress Note ---
Date of Service December 25, 2020 Impression / Recommendations Impression The patient is a 25 year old with a history of BPAD vs usnpecified psychosis who was admitted for bizarre behaviors and SI. diagnostically consistent with likely BPAD mixed episode with hypomanic symptoms currently. Slept well with seroquel and tolerated this well. Discussed increasing dose to 400 mg to further target mood symptoms which she is agreeable to. MNPR due to psychiatric symptoms of psychomotor activation and disorganization. Pulse is elevated this morning but no subjective symptoms, if tachycardia persists or she becomes symptomatic will get EKG. Metabolic labs normal and reassuring for use of seroquel for suspected BPAD manic episode. (1) Bipolar 1 disorder, mixed, moderate: (2) Marijuana use: 12/24/2020--admitted to [facility]. Starting seroquel 200 mg qHS with 50 mg TID prn for anxiety/agitation. Fasting lipids and glucose tomorrow morning. May want to consider clonidine to help with marijuana cravings. 12/25/2020--increase seroquel from 200 to 400 mg qhs. slept well so will continue to track this closely. Continues to have disorganized behaviors. Risk Factors Assessment Do You Have Access To A Gun?: No Health Problems: No Mental Health Diagnoses: Yes Substance Use Disorders: Yes Previous Attempt: Yes Previous Attempt; Highly Lethal: No Previous Attempt; Planned: No Family History of Suicide: No Previous Psychiatric Hospitalization: Yes Hopelessness: No Smoker: No Protective Factors Assessment Responsible for Young Children: Yes Employed: No Stable Relationships: Yes Supportive Family: Yes Interval History Identifying Information 25 yo woman with history of BPAD vs unspecified psychosis admitted for bizarre behavior and statements of SI. Chief Complaint "I'm still dealing with this runny nose but I slept well". Review of Systems Sleep Information Total Hours of Sleep: 7.25 Meal Information Percent Meal Consumed - Breakfast: 50 Percent Meal Consumed - Lunch: 50 Percent Meal Consumed - Dinner: 100 Subjective Subjective Chart and events of last 24 hours reviewed and discussed with multidisciplinary treatment team including nursing and social work. No acute events reported overnight. Slept well. Eating well. Attending groups. Adherent with medications. They report stable mood and no reported side effects from their medication. Had some somatic symptoms last night of heart racing which she attributed to a panic attack, symptoms resolved quickly, vitals normal last night and no symptoms today. Tolerated seroquel well and no side effects. Continues to talk with family which she finds helpful. psychomotor activation with lots of changes in clothes and moving around the unit a lot. Somewhat disorganized at times. Spent more than 20 minutes in the care and coordination of this patient of which greater than 50% was dedicated to counseling and coordination of care. Physical Exam Psychiatric Orientation: alert and oriented x 3 Apperance: appropriately groomed Eye Contact: good eye contact Motor Behavior: steady gait and station and no abnormal motor movements Speech: + pressured speech Affect: + labile affect Mood: + dysphoric mood Thought Process: + tangential thought process and + looseness of associations Thought Content: + preoccupation and + guilt; no delusions Suicidal Thoughts: denies suicidal thoughts Homicidal Thoughts: denies homicidal thoughts Hallucinations: no auditory hallucinations and no visual hallucinations Cognition: recent memory grossly intact and remote memory grossly intact; + attention not intact Estimated Intelligence: consistent with education level Insight: + impaired insight Judgement: + fair judgement Vital Signs (Past 24 Hours) Last Vital Signs Temp 36.8 C 12/25/20 06:47 Pulse 130 H 12/25/20 06:48 Resp 16 12/25/20 06:47 BP 114/70 12/25/20 06:48 Pulse Ox 100 12/23/20 20:08 Results & Data ([facility]) Laboratory Results Laboratory Results - last 24 hr 12/25/20 07:54 Fasting Glucose 91 Triglycerides 44 Cholesterol 113 LDL Cholesterol, Calc 42 VLDL Cholesterol, Calc 9 HDL Cholesterol 62 Cholesterol/HDL Ratio 2 Current Inpatient Medications Current Inpatient Medications: Current Inpatient Medications Acetaminophen (Acetaminophen 325 Mg Tab) 650 mg PO Q4H PRN PRN Reason: Headache or Minor Fever Stop: 01/22/21 20:56 Al Hydrox/Mg Hydrox/Simethicone (Aluminum/Magnesium Susp 30 Ml Udc) 30 ml PO Q4H PRN PRN Reason: GI Upset Stop: 01/22/21 20:56 Bismuth Subsalicylate (Bismuth Subsalicylate Liqd 236 Ml) 15 ml PO PRN PRN PRN Reason: Loose Stool Stop: 01/22/21 20:56 Guaifenesin (Guaifenesin 600 Mg Tabcr) 600 mg PO Q12 PRN PRN Reason: Nasal Congestion Stop: 01/23/21 20:59 Hydroxyzine HCl (Hydroxyzine Hcl 25 Mg Tab) 50 mg PO HSZ PRN PRN Reason: Insomnia Stop: 01/22/21 20:56 Hydroxyzine HCl (Hydroxyzine Hcl 25 Mg Tab) 25 mg PO Q4H PRN PRN Reason: Anxiety Stop: 01/22/21 20:56 Magnesium Hydroxide (Magnesium Hydroxide Susp 30 Ml Udc) 30 ml PO DAILY PRN PRN Reason: Constipation Stop: 01/22/21 20:56 Melatonin (Melatonin 3 Mg Tab) 3 mg PO HS PRN PRN Reason: Sleep Stop: 01/22/21 20:58 Last Admin: 12/24/20 02:28 Dose: 3 mg Documented by: Quetiapine Fumarate (Quetiapine Fumarate 25 Mg Tablet) 50 mg PO TID PRN PRN Reason: Anxiety/Agitation Stop: 01/23/21 20:59 Sodium Chloride (Sodium Chloride 0.65% Na Soln 45 Ml ([place])) 1 - 2 sprays NA PRN PRN PRN Reason: Nasal Dryness/Congestion Stop: 01/22/21 20:56 Last Admin: 12/24/20 14:17 Dose: 2 sprays Documented by: Post Discharge Appointments Primary Care Physician Name Of Family Doctor: Jovani Agarwal
[2020-12-25] MEDS: QUEtiapine FUMARATE 200 MG TAB PO SCH (20:22)
[2020-12-25 21:11] LABS: Marijuana Quant, GCMS Urine 649 ng/mL (<5)
--- NOTE | 2020-12-26 11:39 | Psychiatric Progress Note ---
Date of Service December 26, 2020 Impression / Recommendations Impression The patient is a 25 year old with a history of BPAD vs usnpecified psychosis who was admitted for bizarre behaviors and SI. Diagnostically consistent with likely BPAD mixed episode with hypomanic symptoms currently. -MNPR due to psychiatric symptoms of psychomotor activation and disorganization. -201 voluntary status -Pulse is slightly elevated again this morning-encouraging good intake of fluids. -No apparent side effects to seroquel, doesn't sound like orthostatic hypotension response but will monitor and assess further if symptoms reoccur (1) Bipolar 1 disorder, mixed, moderate: (2) Marijuana use: 12/26/2020--continue seroquel 400 mg qhs. sleeping well. some evidence of paranoia today, will continue to monitor symptoms of psychosis. speech less pressured today. AIMS score=0. 12/25/2020--increase seroquel from 200 to 400 mg qhs. slept well so will continue to track this closely. Continues to have disorganized behaviors. 12/24/2020--admitted to [facility]. Starting seroquel 200 mg qHS with 50 mg TID prn for anxiety/agitation. Fasting lipids and glucose tomorrow morning. May want to consider clonidine to help with marijuana cravings. Risk Factors Assessment Do You Have Access To A Gun?: No Health Problems: No Mental Health Diagnoses: Yes Substance Use Disorders: Yes Previous Attempt: Yes Previous Attempt; Highly Lethal: No Previous Attempt; Planned: No Family History of Suicide: No Previous Psychiatric Hospitalization: Yes Hopelessness: No Smoker: No Protective Factors Assessment Responsible for Young Children: Yes Employed: No Stable Relationships: Yes Supportive Family: Yes Interval History Identifying Information 25 yo woman with history of BPAD vs unspecified psychosis admitted for bizarre behavior and statements of SI. Chief Complaint "I'm worried about a lot of stuff". Review of Systems Sleep Information Total Hours of Sleep: 7.75 Sleep Comments: pt on q-15 minute checks Meal Information Percent Meal Consumed - Breakfast: 0 Percent Meal Consumed - Lunch: 90 Percent Meal Consumed - Dinner: 75 Nutrition Comment: pt. allowed to rest Subjective Subjective Chart and events of last 24 hours reviewed and discussed with multidisciplinary treatment team including nursing and social work. No acute events reported overnight. Slept well. Eating well. Attending groups. Adherent with medications. She reports feeling worried today which she goes to describe, with significant prompting, that she feels sad for some of the struggles another patient on the unit is dealing with. Discussed this in vague terms and seemed to have possible paranoid overture to it. She notes that she feels very safe on the unit and has no concerns about anyone harming her. Finds the seroquel helpful for sleep but notes right after taking it last night she had a "flashbang" which she cannot describe in more detail. No other side effects or concerns. Anxiety is rated as 10 (10=most severe) Depression is rated as 0 (10=most severe) Spent more than 20 minutes in the care and coordination of this patient of which greater than 50% was dedicated to counseling and coordination of care. Physical Exam Psychiatric Orientation: alert and oriented x 3 Apperance: appropriately dressed Eye Contact: good eye contact Motor Behavior: steady gait and station and no abnormal motor movements Speech: + pressured speech Affect: + anxious affect Mood: + anxious mood Thought Process: + circumstantial thought process and + looseness of associations Thought Content: + paranoid Suicidal Thoughts: denies suicidal thoughts Homicidal Thoughts: denies homicidal thoughts Hallucinations: no auditory hallucinations and no visual hallucinations Cognition: recent memory grossly intact and remote memory grossly intact Estimated Intelligence: consistent with education level Insight: + limited insight Judgement: + fair judgement Vital Signs (Past 24 Hours) Last Vital Signs Temp 36.8 C 12/26/20 06:55 Pulse 101 H 12/26/20 06:56 Resp 16 12/26/20 06:55 BP 124/87 12/26/20 06:56 Pulse Ox 100 12/23/20 20:08 Results & Data ([facility]) Laboratory Results Laboratory Results - last 24 hr 12/23/20 13:15 U Marijuana THC Carboxy 649 H Drug Screen Comment SEE NOTE Current Inpatient Medications Current Inpatient Medications: Current Inpatient Medications Acetaminophen (Acetaminophen 325 Mg Tab) 650 mg PO Q4H PRN PRN Reason: Headache or Minor Fever Stop: 01/22/21 20:56 Al Hydrox/Mg Hydrox/Simethicone (Aluminum/Magnesium Susp 30 Ml Udc) 30 ml PO Q4H PRN PRN Reason: GI Upset Stop: 01/22/21 20:56 Bismuth Subsalicylate (Bismuth Subsalicylate Liqd 236 Ml) 15 ml PO PRN PRN PRN Reason: Loose Stool Stop: 01/22/21 20:56 Guaifenesin (Guaifenesin 600 Mg Tabcr) 600 mg PO Q12 PRN PRN Reason: Nasal Congestion Stop: 01/23/21 20:59 Hydroxyzine HCl (Hydroxyzine Hcl 25 Mg Tab) 50 mg PO HSZ PRN PRN Reason: Insomnia Stop: 01/22/21 20:56 Hydroxyzine HCl (Hydroxyzine Hcl 25 Mg Tab) 25 mg PO Q4H PRN PRN Reason: Anxiety Stop: 01/22/21 20:56 Magnesium Hydroxide (Magnesium Hydroxide Susp 30 Ml Udc) 30 ml PO DAILY PRN PRN Reason: Constipation Stop: 01/22/21 20:56 Melatonin (Melatonin 3 Mg Tab) 3 mg PO HS PRN PRN Reason: Sleep Stop: 01/22/21 20:58 Last Admin: 12/24/20 02:28 Dose: 3 mg Documented by: Quetiapine Fumarate (Quetiapine Fumarate 25 Mg Tablet) 50 mg PO TID PRN PRN Reason: Anxiety/Agitation Stop: 01/23/21 20:59 Quetiapine Fumarate (Quetiapine Fumarate 200 Mg Tab) 400 mg PO HS EMBER Stop: 01/24/21 21:59 Last Admin: 12/25/20 20:22 Dose: 400 mg Documented by: Sodium Chloride (Sodium Chloride 0.65% Na Soln 45 Ml ([place])) 1 - 2 sprays NA PRN PRN PRN Reason: Nasal Dryness/Congestion Stop: 01/22/21 20:56 Last Admin: 12/24/20 14:17 Dose: 2 sprays Documented by: Post Discharge Appointments Primary Care Physician Name Of Family Doctor: [facility] Estefanía Maldonado - Dr. Ric Dumas Primary Care Date of Appointment with PCP: 01/04/21 Time of Appointment with PCP: 1:50 PM Provider Appointment Comment: [address], [address], [facility] [address]
[2020-12-26] MEDS: QUEtiapine FUMARATE 200 MG TAB PO SCH (22:11)
--- NOTE | 2020-12-27 17:14 | Psychiatric Progress Note ---
Date of Service December 27, 2020 Impression / Recommendations Impression The patient is a 25 year old with a history of BPAD vs usnpecified psychosis who was admitted for bizarre behaviors and SI. Diagnostically consistent with likely BPAD mixed episode with hypomanic symptoms currently. Dizziness likely due to seroquel, discussed options with Reva and she would like to decrease the dose to see if this helps. Pulse remains tachycardic, will continue to monitor. -MNPR due to psychiatric symptoms of psychomotor activation and disorganization. -201 voluntary status (1) Bipolar 1 disorder, mixed, moderate: (2) Marijuana use: 12/26/2020--having dizziness and positional tachycardia/orthostatic hypotension with seroquel so reducing the dose to 300 mg qhs which she consents to. If symptoms perist at that dose will consider an alternative antipsychotic medication option as sleep has been stable and symptoms of julien are improving. 12/26/2020--continue seroquel 400 mg qhs. sleeping well. some evidence of paranoia today, will continue to monitor symptoms of psychosis. speech less pressured today. AIMS score=0. 12/25/2020--increase seroquel from 200 to 400 mg qhs. slept well so will continue to track this closely. Continues to have disorganized behaviors. 12/24/2020--admitted to [facility]. Starting seroquel 200 mg qHS with 50 mg TID prn for anxiety/agitation. Fasting lipids and glucose tomorrow morning. May want to consider clonidine to help with marijuana cravings. Risk Factors Assessment Do You Have Access To A Gun?: No Health Problems: No Mental Health Diagnoses: Yes Substance Use Disorders: Yes Previous Attempt: Yes Previous Attempt; Highly Lethal: No Previous Attempt; Planned: No Family History of Suicide: No Previous Psychiatric Hospitalization: Yes Hopelessness: No Smoker: No Protective Factors Assessment Responsible for Young Children: Yes Employed: No Stable Relationships: Yes Supportive Family: Yes Interval History Identifying Information 25 yo woman with history of BPAD vs unspecified psychosis admitted for bizarre behavior and statements of SI. Chief Complaint "I'm ok but dizzy like the room is spinning". Review of Systems Sleep Information Total Hours of Sleep: 6.5 Sleep Comments: pt on q-15 minute checks Meal Information Percent Meal Consumed - Breakfast: 75 Percent Meal Consumed - Lunch: 100 Percent Meal Consumed - Dinner: 100 Nutrition Comment: pt. allowed to rest Subjective Subjective Chart and events of last 24 hours reviewed and discussed with multidisciplinary treatment team including nursing and social work. No acute events reported overnight. Slept well. Eating well. Attending groups. Adherent with medications. Mood is good today but experiencing dizziness since waking up this morning. Doesn't feel it's impairing her at all but feels like her head is spinning. Feels less anxious since being in the hospital and not having to balance school work and caring for her son. Denies any marijuana cravings. Spent more than 20 minutes in the care and coordination of this patient of which greater than 50% was dedicated to counseling and coordination of care. Physical Exam Psychiatric Orientation: alert and oriented x 3 Apperance: appropriately dressed and appropriately groomed Eye Contact: good eye contact Motor Behavior: steady gait and station and no abnormal motor movements Speech: + pressured speech Affect: + anxious affect Mood: + dysphoric mood Thought Process: + circumstantial thought process, + tangential thought process and + looseness of associations Thought Content: no delusions Suicidal Thoughts: denies suicidal thoughts Homicidal Thoughts: denies homicidal thoughts Hallucinations: no auditory hallucinations and no visual hallucinations Cognition: recent memory grossly intact and remote memory grossly intact Estimated Intelligence: consistent with education level Insight: + limited insight Judgement: + fair judgement Vital Signs (Past 24 Hours) Last Vital Signs Temp 36.8 C 12/27/20 06:44 Pulse 120 H 12/27/20 06:45 Resp 16 12/27/20 06:44 BP 113/80 12/27/20 06:45 Pulse Ox 100 12/23/20 20:08 Results & Data ([facility]) Current Inpatient Medications Current Inpatient Medications: Current Inpatient Medications Acetaminophen (Acetaminophen 325 Mg Tab) 650 mg PO Q4H PRN PRN Reason: Headache or Minor Fever Stop: 01/22/21 20:56 Al Hydrox/Mg Hydrox/Simethicone (Aluminum/Magnesium Susp 30 Ml Udc) 30 ml PO Q4H PRN PRN Reason: GI Upset Stop: 01/22/21 20:56 Bismuth Subsalicylate (Bismuth Subsalicylate Liqd 236 Ml) 15 ml PO PRN PRN PRN Reason: Loose Stool Stop: 01/22/21 20:56 Guaifenesin (Guaifenesin 600 Mg Tabcr) 600 mg PO Q12 PRN PRN Reason: Nasal Congestion Stop: 01/23/21 20:59 Hydroxyzine HCl (Hydroxyzine Hcl 25 Mg Tab) 50 mg PO HSZ PRN PRN Reason: Insomnia Stop: 01/22/21 20:56 Hydroxyzine HCl (Hydroxyzine Hcl 25 Mg Tab) 25 mg PO Q4H PRN PRN Reason: Anxiety Stop: 01/22/21 20:56 Magnesium Hydroxide (Magnesium Hydroxide Susp 30 Ml Udc) 30 ml PO DAILY PRN PRN Reason: Constipation Stop: 01/22/21 20:56 Melatonin (Melatonin 3 Mg Tab) 3 mg PO HS PRN PRN Reason: Sleep Stop: 01/22/21 20:58 Last Admin: 12/24/20 02:28 Dose: 3 mg Documented by: Quetiapine Fumarate (Quetiapine Fumarate 25 Mg Tablet) 50 mg PO TID PRN PRN Reason: Anxiety/Agitation Stop: 01/23/21 20:59 Quetiapine Fumarate (Quetiapine Fumarate 200 Mg Tab) 400 mg PO HS EMBER Stop: 01/24/21 21:59 Last Admin: 12/26/20 22:11 Dose: 400 mg Documented by: Sodium Chloride (Sodium Chloride 0.65% Na Soln 45 Ml ([place])) 1 - 2 sprays NA PRN PRN PRN Reason: Nasal Dryness/Congestion Stop: 01/22/21 20:56 Last Admin: 12/24/20 14:17 Dose: 2 sprays Documented by: Post Discharge Appointments Primary Care Physician Name Of Family Doctor: [facility] Estefanía Maldonado - Dr. Ric Dumas Primary Care Date of Appointment with PCP: 01/04/21 Time of Appointment with PCP: 1:50 PM Provider Appointment Comment: [address] [facility] [address], [facility] [address], [facility] [address] Contact Information Discharge Discharge Address: [address] [place] [id number]
[2020-12-27] MEDS ORDERED: QUEtiapine FUMARATE 300 MG TABLET PO SCH (22:00)
--- NOTE | 2020-12-28 16:03 | Psychiatric Progress Note ---
Date of Service December 28, 2020 Impression / Recommendations Impression The patient is a 25 year old with a history of BPAD vs usnpecified psychosis who was admitted for bizarre behaviors and SI. Diagnostically consistent with likely BPAD mixed episode with manic symptoms currently. Today, following reduction in seroquel dose due to dizziness and orthostatic hypotension, she demonstrates mood lability, hyperverbal, talking almost continuously in the group, difficult to interrupt, increased motor activity and with bizarre statements about possible VH and loosening of associations all consistent with julien. Due to these symptoms she remains at high risk for harm to self and potentially others given degree of symptoms and impairment and requires psychiatric hospitalization for acute julien. Due to seroquel side effects will cross-taper to ativan which patient consents to. Discussed risks, benefits and alternatives. -MNPR due to psychiatric symptoms of psychomotor activation, elevated mood, hyperverbal, disorganization. -201 voluntary status (1) Bipolar 1 disorder, mixed, moderate: (2) Marijuana use: 12/27/2020--ongoing orthostatis with seroquel so will switch to abilify which she tolerated well during a previous hospitalization and which comes in a DEE which could improve adherence as an outpatient. Will start abilify 10 mg qhs tonight and if not too sedating will then switch to qAM dosing. 12/26/2020--having dizziness and positional tachycardia/orthostatic hypotension with seroquel so reducing the dose to 300 mg qhs which she consents to. If symptoms perist at that dose will consider an alternative antipsychotic medication option as sleep has been stable and symptoms of julien are improving. 12/26/2020--continue seroquel 400 mg qhs. sleeping well. some evidence of paranoia today, will continue to monitor symptoms of psychosis. speech less pressured today. AIMS score=0. 12/25/2020--increase seroquel from 200 to 400 mg qhs. slept well so will continue to track this closely. Continues to have disorganized behaviors. 12/24/2020--admitted to [facility]. Starting seroquel 200 mg qHS with 50 mg TID prn for anxiety/agitation. Fasting lipids and glucose tomorrow morning. May want to consider clonidine to help with marijuana cravings. Risk Factors Assessment Do You Have Access To A Gun?: No Health Problems: No Mental Health Diagnoses: Yes Substance Use Disorders: Yes Previous Attempt: Yes Previous Attempt; Highly Lethal: No Previous Attempt; Planned: No Family History of Suicide: No Previous Psychiatric Hospitalization: Yes Hopelessness: No Smoker: No Protective Factors Assessment Responsible for Young Children: Yes Employed: No Stable Relationships: Yes Supportive Family: Yes Interval History Identifying Information 25 yo woman with history of BPAD vs unspecified psychosis admitted for bizarre behavior and statements of SI. Chief Complaint "I feel great". Review of Systems Sleep Information Total Hours of Sleep: 7 Sleep Comments: pt on q-15 minute checks Meal Information Percent Meal Consumed - Breakfast: 100 Percent Meal Consumed - Lunch: 100 Percent Meal Consumed - Dinner: 100 Nutrition Comment: pt. allowed to rest Subjective Subjective Chart and events of last 24 hours reviewed and discussed with multidisciplinary treatment team including nursing and social work. No acute events reported overnight. Slept well. Eating well. Attending groups. Adherent with medications. Endorses elevated mood today but reported to have labile mood last night. Struggles to describe what she did in group noting "it was a great group we talked about the elephant in the room" but unable to expand on this. No longer having dizziness with the seroquel. Liked the exercise group and did a lot of exercises. Spent more than 20 minutes in the care and coordination of this patient of which greater than 50% was dedicated to counseling and coordination of care. Physical Exam Psychiatric Orientation: alert and oriented x 3 Eye Contact: good eye contact Motor Behavior: no abnormal motor movements Speech: + pressured speech Affect: + elated affect Thought Process: + tangential thought process, + flight of ideas and + looseness of associations Thought Content: + delusions Suicidal Thoughts: denies suicidal thoughts Homicidal Thoughts: denies homicidal thoughts Hallucinations: + auditory hallucinations and + visual hallucinations "seeing vibes in the room as colors" Cognition: + attention not intact Estimated Intelligence: consistent with education level Insight: + limited insight Judgement: + limited judgement Vital Signs (Past 24 Hours) Last Vital Signs Temp 36.7 C 12/28/20 06:00 Pulse 125 H 12/28/20 06:46 Resp 14 12/28/20 06:00 BP 111/76 12/28/20 06:46 Pulse Ox 100 12/23/20 20:08 Results & Data ([facility]) Current Inpatient Medications Current Inpatient Medications: Current Inpatient Medications Acetaminophen (Acetaminophen 325 Mg Tab) 650 mg PO Q4H PRN PRN Reason: Headache or Minor Fever Stop: 01/22/21 20:56 Al Hydrox/Mg Hydrox/Simethicone (Aluminum/Magnesium Susp 30 Ml Udc) 30 ml PO Q4H PRN PRN Reason: GI Upset Stop: 01/22/21 20:56 Bismuth Subsalicylate (Bismuth Subsalicylate Liqd 236 Ml) 15 ml PO PRN PRN PRN Reason: Loose Stool Stop: 01/22/21 20:56 Guaifenesin (Guaifenesin 600 Mg Tabcr) 600 mg PO Q12 PRN PRN Reason: Nasal Congestion Stop: 01/23/21 20:59 Hydroxyzine HCl (Hydroxyzine Hcl 25 Mg Tab) 50 mg PO HSZ PRN PRN Reason: Insomnia Stop: 01/22/21 20:56 Hydroxyzine HCl (Hydroxyzine Hcl 25 Mg Tab) 25 mg PO Q4H PRN PRN Reason: Anxiety Stop: 01/22/21 20:56 Magnesium Hydroxide (Magnesium Hydroxide Susp 30 Ml Udc) 30 ml PO DAILY PRN PRN Reason: Constipation Stop: 01/22/21 20:56 Melatonin (Melatonin 3 Mg Tab) 3 mg PO HS PRN PRN Reason: Sleep Stop: 01/22/21 20:58 Last Admin: 12/24/20 02:28 Dose: 3 mg Documented by: Quetiapine Fumarate (Quetiapine Fumarate 25 Mg Tablet) 50 mg PO TID PRN PRN Reason: Anxiety/Agitation Stop: 01/23/21 20:59 Quetiapine Fumarate (Quetiapine Fumarate 300 Mg Tablet) 300 mg PO HS EMBER Stop: 01/26/21 21:59 Last Admin: 12/27/20 21:57 Dose: 300 mg Documented by: Sodium Chloride (Sodium Chloride 0.65% Na Soln 45 Ml ([place])) 1 - 2 sprays NA PRN PRN PRN Reason: Nasal Dryness/Congestion Stop: 01/22/21 20:56 Last Admin: 12/24/20 14:17 Dose: 2 sprays Documented by: Mental Health & Subst Abuse Tx Psychiatrist Name of Psychiatrist: Zuleika Psychiatrist's Psychiatric Appointment Comment: [id number] [facility] [place] Therapist Name of Therapist: [facility] Therapist's Date of Therapist Appointment: 01/10/21 Time of Therapist Appointment: 11:00 a.m. Therapy Appointment Comment: [id number] [facility] [place] Post Discharge Appointments Primary Care Physician Name Of Family Doctor: [facility] Estefanía Maldonado - Dr. Ric Dumas Primary Care Date of Appointment with PCP: 01/04/21 Time of Appointment with PCP: 1:50 PM Provider Appointment Comment: [address] [facility] [address] [place] [id number], [place] [address] Contact Information Discharge Discharge Address: [address] [place] [address], [place] [address]
[2020-12-28] MEDS ORDERED: ARIPiprazole 10 MG TAB PO SCH (22:00)
--- NOTE | 2020-12-29 14:27 | Psychiatric Progress Note ---
Date of Service December 29, 2020 Impression / Recommendations Impression The patient is a 25 year old with a history of BPAD vs usnpecified psychosis who was admitted for bizarre behaviors and SI. Diagnostically consistent with likely BPAD mixed episode with manic symptoms currently. Due to these symptoms she remains at high risk for harm to self and potentially others given degree of symptoms and impairment and requires psychiatric hospitalization for acute julien. Continues to show symptoms of julien though less hyperverbal today and slightly easier to redirect. Responding well to first dose of abilify and no significant hypotension nor sedation so will switch to qAM dosing with small dose at qHS tonight which Reva consented to. -MNPR due to psychiatric symptoms of psychomotor activation, elevated mood, hyperverbal, disorganization. -201 voluntary status (1) Bipolar 1 disorder, mixed, moderate: (2) Marijuana use: 12/28/2020--tolerated abilify initiation well without orthostasis nor sedation so will switch to abilify 10 mg qAM with one time 2.5 mg qHS dose tonight which Reva consented to. Will verify cost of abilify because if not covered by insurance will need to find an alternative option. 12/27/2020--ongoing orthostatis with seroquel so will switch to abilify which she tolerated well during a previous hospitalization and which comes in a DEE which could improve adherence as an outpatient. Will start abilify 10 mg qhs tonight and if not too sedating will then switch to qAM dosing. 12/26/2020--having dizziness and positional tachycardia/orthostatic hypotension with seroquel so reducing the dose to 300 mg qhs which she consents to. If symptoms perist at that dose will consider an alternative antipsychotic medication option as sleep has been stable and symptoms of julien are improving. 12/26/2020--continue seroquel 400 mg qhs. sleeping well. some evidence of paranoia today, will continue to monitor symptoms of psychosis. speech less pressured today. AIMS score=0. 12/25/2020--increase seroquel from 200 to 400 mg qhs. slept well so will continue to track this closely. Continues to have disorganized behaviors. 12/24/2020--admitted to [facility]. Starting seroquel 200 mg qHS with 50 mg TID prn for anxiety/agitation. Fasting lipids and glucose tomorrow morning. May want to consider clonidine to help with marijuana cravings. Risk Factors Assessment Do You Have Access To A Gun?: No Health Problems: No Mental Health Diagnoses: Yes Substance Use Disorders: Yes Previous Attempt: Yes Previous Attempt; Highly Lethal: No Previous Attempt; Planned: No Family History of Suicide: No Previous Psychiatric Hospitalization: Yes Hopelessness: No Smoker: No Protective Factors Assessment Responsible for Young Children: Yes Employed: No Stable Relationships: Yes Supportive Family: Yes Interval History Identifying Information 25 yo woman with history of BPAD vs unspecified psychosis admitted for bizarre behavior and statements of SI. Chief Complaint "I'm great". Review of Systems Sleep Information Total Hours of Sleep: 6.75 Sleep Comments: pt on q-15 minute checks Meal Information Percent Meal Consumed - Breakfast: 100 Percent Meal Consumed - Lunch: 100 Percent Meal Consumed - Dinner: 100 Nutrition Comment: pt. allowed to rest Subjective Subjective Chart and events of last 24 hours reviewed and discussed with multidisciplinary treatment team including nursing and social work. No acute events reported overnight. Slept well. Eating well. Attending groups. Adherent with medications. Feels "great" today. Tolerated the abilify well last night and it didn't make her tired. Denies any medication side effects. Somewhat preoccupied with blood pressure, from discussion about seroquel yesterday, and emphasizes she is experiencing no symptoms of orthostasis today and recalls a childhood issue with passing out after eating a picnic on grass that may have been sprayed with pesticides. Had a good family meeting this morning. They raised potential concern of insurance not covering cost of abilify in the past. Spent more than 20 minutes in the care and coordination of this patient of which greater than 50% was dedicated to counseling and coordination of care. Physical Exam Psychiatric Orientation: alert and oriented x 3 Apperance: appropriately dressed and appropriately groomed Eye Contact: good eye contact Motor Behavior: steady gait and station and no abnormal motor movements Speech: + pressured speech Affect: + elated affect Thought Process: + tangential thought process and + looseness of associations Thought Content: + preoccupation Suicidal Thoughts: denies suicidal thoughts Homicidal Thoughts: denies homicidal thoughts Cognition: recent memory grossly intact and remote memory grossly intact; + attention not intact Estimated Intelligence: consistent with education level Insight: + impaired insight Judgement: + fair judgement Vital Signs (Past 24 Hours) Last Vital Signs Temp 36.8 C 12/29/20 06:00 Pulse 106 H 12/29/20 06:42 Resp 14 12/29/20 06:00 BP 101/66 12/29/20 06:42 Pulse Ox 100 12/23/20 20:08 Results & Data ([facility]) Current Inpatient Medications Current Inpatient Medications: Current Inpatient Medications Acetaminophen (Acetaminophen 325 Mg Tab) 650 mg PO Q4H PRN PRN Reason: Headache or Minor Fever Stop: 01/22/21 20:56 Al Hydrox/Mg Hydrox/Simethicone (Aluminum/Magnesium Susp 30 Ml Udc) 30 ml PO Q4H PRN PRN Reason: GI Upset Stop: 01/22/21 20:56 Aripiprazole (Aripiprazole 10 Mg Tab) 10 mg PO HS EMBER Stop: 01/27/21 21:59 Last Admin: 12/28/20 20:18 Dose: 10 mg Documented by: Bismuth Subsalicylate (Bismuth Subsalicylate Liqd 236 Ml) 15 ml PO PRN PRN PRN Reason: Loose Stool Stop: 01/22/21 20:56 Guaifenesin (Guaifenesin 600 Mg Tabcr) 600 mg PO Q12 PRN PRN Reason: Nasal Congestion Stop: 01/23/21 20:59 Hydroxyzine HCl (Hydroxyzine Hcl 25 Mg Tab) 50 mg PO HSZ PRN PRN Reason: Insomnia Stop: 01/22/21 20:56 Hydroxyzine HCl (Hydroxyzine Hcl 25 Mg Tab) 25 mg PO Q4H PRN PRN Reason: Anxiety Stop: 01/22/21 20:56 Magnesium Hydroxide (Magnesium Hydroxide Susp 30 Ml Udc) 30 ml PO DAILY PRN PRN Reason: Constipation Stop: 01/22/21 20:56 Melatonin (Melatonin 3 Mg Tab) 3 mg PO HS PRN PRN Reason: Sleep Stop: 01/22/21 20:58 Last Admin: 12/24/20 02:28 Dose: 3 mg Documented by: Sodium Chloride (Sodium Chloride 0.65% Na Soln 45 Ml ([place])) 1 - 2 sprays NA PRN PRN PRN Reason: Nasal Dryness/Congestion Stop: 01/22/21 20:56 Last Admin: 12/24/20 14:17 Dose: 2 sprays Documented by: Mental Health & Subst Abuse Tx Psychiatrist Name of Psychiatrist: Zuleika Psychiatrist's Psychiatric Appointment Comment: [phone] [facility] [place] Therapist Name of Therapist: Z[facility] - [facility] Therapist's Date of Therapist Appointment: 01/10/21 Time of Therapist Appointment: 11:00 a.m. Therapy Appointment Comment: [phone] [facility] [place] Post Discharge Appointments Primary Care Physician Name Of Family Doctor: [facility] Estefanía Maldonado - Dr. Ric Dumas Primary Care Date of Appointment with PCP: 01/04/21 Time of Appointment with PCP: 1:50 PM Provider Appointment Comment: [phone] [facility] [place] [address], [place] [address] Contact Information Discharge Discharge Address: [address] [place] [address], [place] [address]
[2020-12-29] MEDS ORDERED: ARIPiprazole 5 MG TAB PO SCH (22:00)
[2020-12-30] MEDS: ARIPiprazole 10 MG TAB PO SCH (08:50)
--- NOTE | 2020-12-30 15:14 | Psychiatric Progress Note ---
Date of Service December 30, 2020 Impression / Recommendations Impression The patient is a 25 year old with a history of BPAD vs unspecified psychosis who was admitted for bizarre behaviors and SI. Diagnostically consistent with likely BPAD mixed episode with manic symptoms improving significantly. Today speech is normal rate, sleep remains >6 hours per night and she is more organized. She's tolerating the abilify well so far and likes it as a medication choice. -MNPR due to psychiatric symptoms of psychomotor activation, elevated mood -201 voluntary status (1) Bipolar 1 disorder, mixed, moderate: (2) Marijuana use: 12/29/2020--Continue abilify 10 mg qAM. Based on nursing review, even if abilify is not covered by her insurance there are local pharmacies where the cost would be <$15 per month which Reva feels is definitely financially feasibly. She likes the po form of abilify but there exists the option for abilify DEE formulation in the future as an outpatient should she find that adherence or remembering to take a daily medication is a challenge. Asymptomatic tachycardia, have encouraged fluid intake and to alert us should she develop any cardiac symptoms. 12/28/2020--tolerated abilify initiation well without orthostasis nor sedation so will switch to abilify 10 mg qAM with one time 2.5 mg qHS dose tonight which Reva consented to. Will verify cost of abilify because if not covered by insurance will need to find an alternative option. 12/27/2020--ongoing orthostatis with seroquel so will switch to abilify which she tolerated well during a previous hospitalization and which comes in a DEE which could improve adherence as an outpatient. Will start abilify 10 mg qhs tonight and if not too sedating will then switch to qAM dosing. 12/26/2020--having dizziness and positional tachycardia/orthostatic hypotension with seroquel so reducing the dose to 300 mg qhs which she consents to. If symptoms perist at that dose will consider an alternative antipsychotic medication option as sleep has been stable and symptoms of julien are improving. 12/26/2020--continue seroquel 400 mg qhs. sleeping well. some evidence of paranoia today, will continue to monitor symptoms of psychosis. speech less pressured today. AIMS score=0. 12/25/2020--increase seroquel from 200 to 400 mg qhs. slept well so will continue to track this closely. Continues to have disorganized behaviors. 12/24/2020--admitted to [facility]. Starting seroquel 200 mg qHS with 50 mg TID prn for anxiety/agitation. Fasting lipids and glucose tomorrow morning. May want to consider clonidine to help with marijuana cravings. Risk Factors Assessment Do You Have Access To A Gun?: No Health Problems: No Mental Health Diagnoses: Yes Substance Use Disorders: Yes Previous Attempt: Yes Previous Attempt; Highly Lethal: No Previous Attempt; Planned: No Family History of Suicide: No Previous Psychiatric Hospitalization: Yes Hopelessness: No Smoker: No Protective Factors Assessment Responsible for Young Children: Yes Employed: No Stable Relationships: Yes Supportive Family: Yes Interval History Identifying Information 25 yo woman with history of BPAD vs unspecified psychosis admitted for bizarre behavior and statements of SI. Chief Complaint "I'm good, how about you?". Review of Systems Sleep Information Total Hours of Sleep: 6.5 Sleep Comments: pt on q-15 minute checks Meal Information Percent Meal Consumed - Breakfast: 75 Percent Meal Consumed - Lunch: 100 Percent Meal Consumed - Dinner: 100 Nutrition Comment: pt. allowed to rest Subjective Subjective Chart and events of last 24 hours reviewed and discussed with multidisciplinary treatment team including nursing and social work. No acute events reported overnight. Slept well. Eating well. Attending groups. Adherent with medications. She reports good mood and no reported side effects from their medication. She likes taking the abilify in the morning and denies any side effects. Continues to have tachycardia but she denies any cardiac symptoms nor racing heart nor palpitations. Has been able to participate in exercise groups without any problems or discomfort. Spent more than 20 minutes in the care and coordination of this patient of which greater than 50% was dedicated to counseling and coordination of care. Physical Exam Psychiatric Orientation: alert and oriented x 3 Apperance: appropriately dressed and appropriately groomed Eye Contact: good eye contact Motor Behavior: steady gait and station and no abnormal motor movements Speech: normal rate/rhythm/volume of speech Affect: euthymic affect Thought Process: goal directed thought process Thought Content: reality based without delusions Suicidal Thoughts: denies suicidal thoughts Homicidal Thoughts: denies homicidal thoughts Hallucinations: no auditory hallucinations and no visual hallucinations Cognition: recent memory grossly intact, remote memory grossly intact, attention grossly intact and language grossly intact Estimated Intelligence: consistent with education level Insight: + fair insight Judgement: good judgement Vital Signs (Past 24 Hours) Last Vital Signs Temp 37.3 C 12/30/20 06:42 Pulse 128 H 12/30/20 06:43 Resp 16 12/30/20 06:42 BP 137/88 12/30/20 06:43 Pulse Ox 100 12/23/20 20:08 Results & Data ([facility]) Current Inpatient Medications Current Inpatient Medications: Current Inpatient Medications Acetaminophen (Acetaminophen 325 Mg Tab) 650 mg PO Q4H PRN PRN Reason: Headache or Minor Fever Stop: 01/22/21 20:56 Al Hydrox/Mg Hydrox/Simethicone (Aluminum/Magnesium Susp 30 Ml Udc) 30 ml PO Q4H PRN PRN Reason: GI Upset Stop: 01/22/21 20:56 Aripiprazole (Aripiprazole 5 Mg Tab) 2.5 mg PO HS EMBER Stop: 01/28/21 21:59 Last Admin: 12/29/20 19:58 Dose: 2.5 mg Documented by: Aripiprazole (Aripiprazole 10 Mg Tab) 10 mg PO QAM EMBER Stop: 01/29/21 08:59 Last Admin: 12/30/20 08:50 Dose: 10 mg Documented by: Bismuth Subsalicylate (Bismuth Subsalicylate Liqd 236 Ml) 15 ml PO PRN PRN PRN Reason: Loose Stool Stop: 01/22/21 20:56 Guaifenesin (Guaifenesin 600 Mg Tabcr) 600 mg PO Q12 PRN PRN Reason: Nasal Congestion Stop: 01/23/21 20:59 Hydroxyzine HCl (Hydroxyzine Hcl 25 Mg Tab) 50 mg PO HSZ PRN PRN Reason: Insomnia Stop: 01/22/21 20:56 Hydroxyzine HCl (Hydroxyzine Hcl 25 Mg Tab) 25 mg PO Q4H PRN PRN Reason: Anxiety Stop: 01/22/21 20:56 Magnesium Hydroxide (Magnesium Hydroxide Susp 30 Ml Udc) 30 ml PO DAILY PRN PRN Reason: Constipation Stop: 01/22/21 20:56 Melatonin (Melatonin 3 Mg Tab) 3 mg PO HS PRN PRN Reason: Sleep Stop: 01/22/21 20:58 Last Admin: 12/24/20 02:28 Dose: 3 mg Documented by: Sodium Chloride (Sodium Chloride 0.65% Na Soln 45 Ml ([place])) 1 - 2 sprays NA PRN PRN PRN Reason: Nasal Dryness/Congestion Stop: 01/22/21 20:56 Last Admin: 12/24/20 14:17 Dose: 2 sprays Documented by: Mental Health & Subst Abuse Tx Psychiatrist Name of Psychiatrist: Zule[phone] Name of [facility]rapist: [facility] Therapist's Date of Therapist Appointment: 01/10/21 Time of Therapist Appointment: 11:00 a.m. [phone] Primary Care Physician Name Of Family Doctor: [facility] Estefanía Maldonado - Dr. Ric Dumas Primary Care Date of Appointment with PCP: 01/04/21 Time of Appointment with PCP: 1:50 PM Provider Appointment Comment: [phone] [place] Maldonado [address] [address] Contact Information Discharge Discharge Address: [address] [place] [id number]
[2020-12-31] MEDS: ARIPiprazole 10 MG TAB PO SCH (08:57)
--- NOTE | 2020-12-31 12:34 | Psychiatric Progress Note ---
Date of Service December 31, 2020 Impression / Recommendations Impression The patient is a 25 year old with a history of BPAD vs unspecified psychosis who was admitted for bizarre behaviors and SI. Diagnostically consistent with likely BPAD mixed episode with manic symptoms improving significantly. 12/31/20--improved (1) Bipolar 1 disorder, mixed, moderate: 12/31/20--continue Abilify as ordered. Currently no follow up appointments other than PCP. 12/29/2020--Continue abilify 10 mg qAM. Based on nursing review, even if abilify is not covered by her insurance there are local pharmacies where the cost would be <$15 per month which Reva feels is definitely financially feasibly. She likes the po form of abilify but there exists the option for abilify DEE formulation in the future as an outpatient should she find that adherence or re membering to take a daily medication is a challenge. Asymptomatic tachycardia, have encouraged fluid intake and to alert us should she develop any cardiac symptoms. 12/28/2020--tolerated abilify initiation well without orthostasis nor sedation so will switch to abilify 10 mg qAM with one time 2.5 mg qHS dose tonight which Reva consented to. Will verify cost of abilify because if not covered by insurance will need to find an alternative option. 12/27/2020--ongoing orthostatis with seroquel so will switch to abilify which she tolerated well during a previous hospitalization and which comes in a DEE which could improve adherence as an outpatient. Will start abilify 10 mg qhs tonight and if not too sedating will then switch to qAM dosing. 12/26/2020--having dizziness and positional tachycardia/orthostatic hypotension with seroquel so reducing the dose to 300 mg qhs which she consents to. If symptoms perist at that dose will consider an alternative antipsychotic medication option as sleep has been stable and symptoms of julien are improving. 12/26/2020--continue seroquel 400 mg qhs. sleeping well. some evidence of paranoia today, will continue to monitor symptoms of psychosis. speech less pressured today. AIMS score=0. 12/25/2020--increase seroquel from 200 to 400 mg qhs. slept well so will continue to track this closely. Continues to have disorganized behaviors. 12/24/2020--admitted to [facility]. Starting seroquel 200 mg qHS with 50 mg TID prn for anxiety/agitation. Fasting lipids and glucose tomorrow morning. May want to consider clonidine to help with marijuana cravings. Risk Factors Assessment Do You Have Access To A Gun?: No Health Problems: No Mental Health Diagnoses: Yes Substance Use Disorders: Yes Previous Attempt: Yes Previous Attempt; Highly Lethal: No Previous Attempt; Planned: No Family History of Suicide: No Previous Psychiatric Hospitalization: Yes Hopelessness: No Smoker: No Protective Factors Assessment Responsible for Young Children: Yes Employed: No Stable Relationships: Yes Supportive Family: Yes Interval History Identifying Information 25 yo woman with history of BPAD vs unspecified psychosis admitted for bizarre behavior and statements of SI. Chief Complaint "I'm feeling better/great". Review of Systems Sleep Information Total Hours of Sleep: 7.75 Sleep Comments: pt on q-15 minute checks Meal Information Percent Meal Consumed - Breakfast: 50 Percent Meal Consumed - Lunch: 100 Percent Meal Consumed - Dinner: 100 Nutrition Comment: pt. allowed to rest Subjective Subjective Patient was seen & assessed and interval progress reviewed with nursing and social work. Hypomania resolved following initiation of Abilify. Has taken it previously. Declines DEE. Looking forward to outpatient. Behavior has been labile, yesterday 1st "good day". Physical Exam Psychiatric Orientation: alert and oriented x 3 Apperance: appropriately dressed and appropriately groomed Eye Contact: good eye contact Motor Behavior: no abnormal motor movements Speech: normal rate/rhythm/volume of speech Affect: euthymic affect Mood: + anxious mood Thought Process: goal directed thought process Thought Content: reality based without delusions Suicidal Thoughts: denies suicidal thoughts Homicidal Thoughts: denies homicidal thoughts Hallucinations: no auditory hallucinations and no visual hallucinations Cognition: attention grossly intact and language grossly intact Estimated Intelligence: consistent with education level Insight: + limited insight Judgement: + limited judgement Vital Signs (Past 24 Hours) Last Vital Signs Temp 36.8 C 12/31/20 06:31 Pulse 93 H 12/31/20 06:32 Resp 16 12/31/20 06:31 BP 123/82 12/31/20 06:32 Pulse Ox 100 12/23/20 20:08 Results & Data ([facility]) Current Inpatient Medications Current Inpatient Medications: Current Inpatient Medications Acetaminophen (Acetaminophen 325 Mg Tab) 650 mg PO Q4H PRN PRN Reason: Headache or Minor Fever Stop: 01/22/21 20:56 Al Hydrox/Mg Hydrox/Simethicone (Aluminum/Magnesium Susp 30 Ml Udc) 30 ml PO Q4H PRN PRN Reason: GI Upset Stop: 01/22/21 20:56 Aripiprazole (Aripiprazole 10 Mg Tab) 10 mg PO QAM EMBER Stop: 01/29/21 08:59 Last Admin: 12/31/20 08:57 Dose: 10 mg Documented by: Bismuth Subsalicylate (Bismuth Subsalicylate Liqd 236 Ml) 15 ml PO PRN PRN PRN Reason: Loose Stool Stop: 01/22/21 20:56 Guaifenesin (Guaifenesin 600 Mg Tabcr) 600 mg PO Q12 PRN PRN Reason: Nasal Congestion Stop: 01/23/21 20:59 Hydroxyzine HCl (Hydroxyzine Hcl 25 Mg Tab) 50 mg PO HSZ PRN PRN Reason: Insomnia Stop: 01/22/21 20:56 Hydroxyzine HCl (Hydroxyzine Hcl 25 Mg Tab) 25 mg PO Q4H PRN PRN Reason: Anxiety Stop: 01/22/21 20:56 Magnesium Hydroxide (Magnesium Hydroxide Susp 30 Ml Udc) 30 ml PO DAILY PRN PRN Reason: Constipation Stop: 01/22/21 20:56 Melatonin (Melatonin 3 Mg Tab) 3 mg PO HS PRN PRN Reason: Sleep Stop: 01/22/21 20:58 Last Admin: 12/24/20 02:28 Dose: 3 mg Documented by: Sodium Chloride (Sodium Chloride 0.65% Na Soln 45 Ml ([place])) 1 - 2 sprays NA PRN PRN PRN Reason: Nasal Dryness/Congestion Stop: 01/22/21 20:56 Last Admin: 12/24/20 14:17 Dose: 2 sprays Documented by: Mental Health & Subst Abuse Tx Psychiatrist Name of Psychiatrist: Zuleika Psychiatrist's Psychiatric Appointment Comment: [phone] [facility], [place] Therapist Name of Therapist: Zuleika - [facility] Therapist's Date of Therapist Appointment: 01/10/21 Time of Therapist Appointment: 11:00 a.m. [phone] Primary Care Physician Name Of Family Doctor: [facility] Estefanía Maldonado - Dr. Ric Dumas Primary Care Date of Appointment with PCP: 01/04/21 Time of Appointment with PCP: 1:50 PM Provider Appointment Comment: [phone] [facility] Estefanía Maldonado [place] [address], [place] [address] Contact Information Discharge Discharge Address: [address] [place] [address], [place] [address]
[2021-01-01] MEDS: ARIPiprazole 10 MG TAB PO SCH (08:58)
--- NOTE | 2021-01-01 13:20 | Psychiatric Progress Note ---
Date of Service January 01, 2021 Impression / Recommendations Impression The patient is a 25 year old with a history of BPAD vs unspecified psychosis who was admitted for bizarre behaviors and SI. Diagnostically consistent with likely BPAD mixed episode with manic symptoms improving significantly. 01/01/21--improving Plan: continue current meds and tx plan. Risk Factors Assessment Do You Have Access To A Gun?: No Health Problems: No Mental Health Diagnoses: Yes Substance Use Disorders: Yes Previous Attempt: Yes Previous Attempt; Highly Lethal: No Previous Attempt; Planned: No Family History of Suicide: No Previous Psychiatric Hospitalization: Yes Hopelessness: No Smoker: No Protective Factors Assessment Responsible for Young Children: Yes Employed: No Stable Relationships: Yes Supportive Family: Yes Interval History Identifying Information 25 yo woman with history of BPAD vs unspecified psychosis admitted for bizarre behavior and statements of SI. Chief Complaint "I'm getting better". Review of Systems Sleep Information Total Hours of Sleep: 6.5 Sleep Comments: pt on q-15 minute checks Meal Information Percent Meal Consumed - Breakfast: 95 Percent Meal Consumed - Lunch: 100 Percent Meal Consumed - Dinner: 100 Nutrition Comment: pt. allowed to rest Subjective Subjective Patient was seen & assessed and interval progress reviewed with nursing and social work. No acute issues overnight. Tolerating medications. Physical Exam Psychiatric Orientation: alert and oriented x 3 Apperance: appropriately dressed and appropriately groomed Eye Contact: good eye contact Motor Behavior: no abnormal motor movements Speech: normal rate/rhythm/volume of speech Affect: euthymic affect Mood: no depressed mood Thought Process: goal directed thought process Thought Content: reality based without delusions Suicidal Thoughts: denies suicidal thoughts Homicidal Thoughts: denies homicidal thoughts Hallucinations: no auditory hallucinations and no visual hallucinations Cognition: attention grossly intact and language grossly intact Estimated Intelligence: consistent with education level Insight: + limited insight Judgement: + limited judgement Vital Signs (Past 24 Hours) Last Vital Signs Temp 36.8 C 01/01/21 06:46 Pulse 94 H 01/01/21 06:47 Resp 16 01/01/21 06:46 BP 125/83 01/01/21 06:47 Pulse Ox 100 12/23/20 20:08 Results & Data ([facility]) Current Inpatient Medications Current Inpatient Medications: Current Inpatient Medications Acetaminophen (Acetaminophen 325 Mg Tab) 650 mg PO Q4H PRN PRN Reason: Headache or Minor Fever Stop: 10/31/21 20:56 Al Hydrox/Mg Hydrox/Simethicone (Aluminum/Magnesium Susp 30 Ml Udc) 30 ml PO Q4H PRN PRN Reason: GI Upset Stop: 01/22/21 20:56 Aripiprazole (Aripiprazole 10 Mg Tab) 10 mg PO QAM EMBER Stop: 01/29/21 08:59 Last Admin: 01/01/21 08:58 Dose: 10 mg Documented by: Bismuth Subsalicylate (Bismuth Subsalicylate Liqd 236 Ml) 15 ml PO PRN PRN PRN Reason: Loose Stool Stop: 01/22/21 20:56 Guaifenesin (Guaifenesin 600 Mg Tabcr) 600 mg PO Q12 PRN PRN Reason: Nasal Congestion Stop: 01/23/21 20:59 Hydroxyzine HCl (Hydroxyzine Hcl 25 Mg Tab) 50 mg PO HSZ PRN PRN Reason: Insomnia Stop: 01/22/21 20:56 Hydroxyzine HCl (Hydroxyzine Hcl 25 Mg Tab) 25 mg PO Q4H PRN PRN Reason: Anxiety Stop: 01/22/21 20:56 Magnesium Hydroxide (Magnesium Hydroxide Susp 30 Ml Udc) 30 ml PO DAILY PRN PRN Reason: Constipation Stop: 01/22/21 20:56 Melatonin (Melatonin 3 Mg Tab) 3 mg PO HS PRN PRN Reason: Sleep Stop: 01/22/21 20:58 Last Admin: 12/24/20 02:28 Dose: 3 mg Documented by: Sodium Chloride (Sodium Chloride 0.65% Na Soln 45 Ml ([employer])) 1 - 2 sprays NA PRN PRN PRN Reason: Nasal Dryness/Congestion Stop: 01/22/21 20:56 Last Admin: 12/24/20 14:17 Dose: 2 sprays Documented by: Mental Health & Subst Abuse Tx Psychiatrist Name of Psychiatrist: [phone] Name of Therapist: [facility] The[facility]'s Date of Therapist Appointment: 01/10/21 Time of Therapist Appointment: 11:00 a.m. Therapy Appointment Comment: [id number] [facility] [place] Post Discharge Appointments Primary Care Physician Name Of Family Doctor: [facility] Erica - Dr. Ric Dumas Primary Care Date of Appointment with PCP: 01/04/21 Time of Appointment with PCP: 1:50 PM Provider Appointment Comment: [phone] [facility] [place], [place] [address], [place] [address] Contact Information Discharge Discharge Address: [address] [place] [address], [place] [address]
[2021-01-02] MEDS: ARIPiprazole 10 MG TAB PO SCH (08:47)
--- NOTE | 2021-01-02 14:11 | Psychiatric Progress Note ---
Date of Service January 02, 2021 Impression / Recommendations Impression The patient is a 25 year old with a history of BPAD vs unspecified psychosis who was admitted for bizarre behaviors and SI. Diagnostically consistent with likely BPAD mixed episode with manic symptoms improving significantly. 01/02/21--improving, no abnormal movements with Abilify Plan: continue current meds and tx plan. (1) Bipolar 1 disorder, mixed, moderate: Risk Factors Assessment Do You Have Access To A Gun?: No Health Problems: No Mental Health Diagnoses: Yes Substance Use Disorders: Yes Previous Attempt: Yes Previous Attempt; Highly Lethal: No Previous Attempt; Planned: No Family History of Suicide: No Previous Psychiatric Hospitalization: Yes Hopelessness: No Smoker: No Protective Factors Assessment Responsible for Young Children: Yes Employed: No Stable Relationships: Yes Supportive Family: Yes Interval History Identifying Information 25 yo woman with history of BPAD vs unspecified psychosis admitted for bizarre behavior and statements of SI. Chief Complaint "I worry about my son's trauma". Review of Systems Sleep Information Total Hours of Sleep: 6.5 Sleep Comments: pt on q-15 minute checks Meal Information Percent Meal Consumed - Breakfast: 100 Percent Meal Consumed - Lunch: 75 Percent Meal Consumed - Dinner: 100 Nutrition Comment: pt. allowed to rest Subjective Subjective Patient was seen & assessed and interval progress reviewed with treatment team. Patient asked appropriate questions about how to support her son when she transitions home. tolerating medication. Physical Exam Psychiatric Orientation: alert and oriented x 3 Apperance: appropriately dressed and appropriately groomed Eye Contact: good eye contact Motor Behavior: no abnormal motor movements Speech: normal rate/rhythm/volume of speech Affect: euthymic affect Mood: no depressed mood Thought Process: goal directed thought process Thought Content: reality based without delusions Suicidal Thoughts: denies suicidal thoughts Homicidal Thoughts: denies homicidal thoughts Hallucinations: no auditory hallucinations and no visual hallucinations Cognition: attention grossly intact and language grossly intact Estimated Intelligence: consistent with education level Vital Signs (Past 24 Hours) Last Vital Signs Temp 36.9 C 01/02/21 06:39 Pulse 88 01/02/21 06:40 Resp 16 01/02/21 06:39 BP 113/74 01/02/21 06:40 Pulse Ox 100 12/23/20 20:08 Results & Data ([facility]) Current Inpatient Medications Current Inpatient Medications: Current Inpatient Medications Acetaminophen (Acetaminophen 325 Mg Tab) 650 mg PO Q4H PRN PRN Reason: Headache or Minor Fever Stop: 01/22/21 20:56 Al Hydrox/Mg Hydrox/Simethicone (Aluminum/Magnesium Susp 30 Ml Udc) 30 ml PO Q4H PRN PRN Reason: GI Upset Stop: 01/22/21 20:56 Aripiprazole (Aripiprazole 10 Mg Tab) 10 mg PO QAM EMBER Stop: 01/29/21 08:59 Last Admin: 01/02/21 08:47 Dose: 10 mg Documented by: Bismuth Subsalicylate (Bismuth Subsalicylate Liqd 236 Ml) 15 ml PO PRN PRN PRN Reason: Loose Stool Stop: 01/22/21 20:56 Guaifenesin (Guaifenesin 600 Mg Tabcr) 600 mg PO Q12 PRN PRN Reason: Nasal Congestion Stop: 01/23/21 20:59 Hydroxyzine HCl (Hydroxyzine Hcl 25 Mg Tab) 50 mg PO HSZ PRN PRN Reason: Insomnia Stop: 01/22/21 20:56 Hydroxyzine HCl (Hydroxyzine Hcl 25 Mg Tab) 25 mg PO Q4H PRN PRN Reason: Anxiety Stop: 01/22/21 20:56 Magnesium Hydroxide (Magnesium Hydroxide Susp 30 Ml Udc) 30 ml PO DAILY PRN PRN Reason: Constipation Stop: 01/22/21 20:56 Melatonin (Melatonin 3 Mg Tab) 3 mg PO HS PRN PRN Reason: Sleep Stop: 01/22/21 20:58 Last Admin: 12/24/20 02:28 Dose: 3 mg Documented by: Sodium Chloride (Sodium Chloride 0.65% Na Soln 45 Ml ([place])) 1 - 2 sprays NA PRN PRN PRN Reason: Nasal Dryness/Congestion Stop: 01/22/21 20:56 Last Admin: 12/24/20 14:17 Dose: 2 sprays Documented by: Mental Health & Subst Abuse Tx Psychiatrist Name of Psychiatrist: Zuleika Psychiatrist's Psychiatric Appointment Comment: [phone] [facility], [place] Therapist Name of Therapist: [facility] - [facility]ist's Date of Therapist Appointment: 01/10/21 Time of Therapist Appointment: 11:00 a.m. Therapy Appointment Comment: [phone] [facility] [place], [place] Post Discharge Appointments Primary Care Physician Name Of Family Doctor: [facility] Estefanía Maldonado - Dr. Ric Dumas Primary Care Date of Appointment with PCP: 01/04/21 Time of Appointment with PCP: 1:50 PM Provider Appointment Comment: [phone] [facility] [place] [address], [place] [address] Contact Information Discharge Discharge Address: [address] [place] [address], [place] [address]
[2021-01-03] MEDS: ARIPiprazole 10 MG TAB PO SCH (09:04)
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
== END 2021-01-03 13:55 | disposition home or self-care (01) | DRG 885 ==
LOC: ED 13:09 → SUATTDRO 20:58 → 3S 20:58